=== PATIENT | female | born 1945 | race Caucasian/White ===

== ENCOUNTER → 2018-02-13 | Outpatient (CLI) | payer MEDICARE, OTHER ==
--- NOTE | 2018-02-14 23:53 | US ---
EXAMINATION TYPE: US thyroid st tissue head/neck DATE OF EXAM: 02/13/2018 COMPARISON: NONE CLINICAL HISTORY: E04.9 Enlarged thyroid. Neck swelling GLAND SIZE: Right Lobe: 5.7 x 1.9 x 2.5 cm Overall Parenchyma: heterogenous Left Lobe: 6.7 x 3.7 x 4.1 cm Overall Parenchyma: heterogeneous Isthmus Thickness: 0.8 cm NODULES ISTHMUS: # of nodules measured in the isthmus: 0 Bilateral neck scanned, no evidence of lymphadenopathy. Markedly heterogeneous enlarged thyroid without definitive suspicious focal nodule. IMPRESSION: As above
== END ==
LOC: RADUSWWP 15:52
PROVIDERS: ATTEND Family Medicine
DX: E04.9 Nontoxic goiter, unspecified (principal); E04.1 Nontoxic single thyroid nodule
CPT/HCPCS: 76536

== ENCOUNTER → 2019-05-26 | Outpatient (CLI) | payer MEDICARE, OTHER ==
--- NOTE | 2019-05-27 09:08 | NM ---
EXAMINATION TYPE: NM bone scan whole body DATE OF EXAM: 05/26/2019 COMPARISON: NONE HISTORY: Left hip pain for 3 years after left hip replacement. History of osteoarthritis. Left knee r eplacement approximately 11 years ago Delayed whole-body scanning was performed following the injection of 24.7 mCi Tc 99m MDP. Images acq uired 3 hours post injection. FINDINGS: Photopenic defect is seen of the left knee and left femur from arthroplasties. There is abnormal curv ilinear uptake of the acetabulum as well as of the left superior pubic ramus and left pubic bone. Foc al uptake is also seen of the right tibial tuberosity. Physiologic excretion within the kidneys and c umulation the urinary bladder as well as avid uptake in the nasopharynx are noted. Degenerative uptak e is symmetric of the acromioclavicular joints, glenohumeral joints, sternoclavicular joints, elbows, wrists, sacroiliac joints and ankles. Symmetric uptake of the spine is also likely degenerative. IMPRESSION: 1. Focal curvilinear uptake along the left acetabulum. In a total hip prosthesis there is concern for acetabular component loosening, aseptic or septic. 2. Abnormal uptake along the left superior pubic ramus and pubic bone. Correlate with radiographs to assess for fracture or osseous lesion. 3. Tibial tuberosity focal uptake on the right. Correlation with radiographs is also recommended. 4. Mild degenerative changes of the axial and appendicular skeleton.
== END | disposition home or self-care (01) ==
LOC: RADBDWWP 12:35
PROVIDERS: ATTEND Family Medicine
DX: M19.90 Unspecified osteoarthritis, unspecified site (principal); R94.8 Abnormal results of function studies of other organs and systems; Z88.0 Allergy status to penicillin; Z88.2 Allergy status to sulfonamides; Z88.5 Allergy status to narcotic agent; Z88.6 Allergy status to analgesic agent
CPT/HCPCS: 78306; A9503

== ENCOUNTER → 2019-10-18 | Outpatient (CLI) | payer MEDICARE, OTHER | END | disposition home or self-care (01) | LOC: LABPAT 11:01 | PROVIDERS: ATTEND Orthopaedic Surgery | DX: Z01.812 Encounter for preprocedural laboratory examination (principal) | CPT/HCPCS: 87070 ==

== ENCOUNTER → 2019-11-05 | Outpatient (CLI) | payer MEDICARE, OTHER ==
[2019-11-05 12:57] LABS: HCT 35.2 % (34.0-46.0); HGB 11.6 gm/dL (11.4-16.0); MCH 30.9 pg (25.0-35.0); MCHC 33.1 g/dL (31.0-37.0); MCV 93.3 fL (80.0-100.0); Mean Platelet Volume 8.3; Platelet Count 111 k/uL (150-450); RBC 3.77 m/uL (3.80-5.40); RDW 12.8 % (11.5-15.5); WBC 6.1 k/uL (3.8-10.6)
[2019-11-05 13:04] LABS: Albumin 3.6 g/dL (3.5-5.0); Calcium 9.1 mg/dL (8.4-10.2); Potassium 4.2 mmol/L (3.5-5.1); Total Bilirubin 0.5 mg/dL (0.2-1.3); Total Protein 6.3 g/dL (6.3-8.2)
[2019-11-05 13:15] LABS: INR 0.9 (<1.2); Partial Thromboplastin Time 22.2 sec (22.0-30.0); Prothrombin Time 9.9 sec (9.0-12.0)
[2019-11-05 13:26] LABS: Appearance,Urine Clear (Clear); Bacteria,Urine Rare /hpf; Bilirubin,Urine Negative (Negative); Blood,Urine Negative (Negative); Color,Urine Light Yellow; Glucose,Urine (UA) Negative (Negative); Ketones,Urine Negative (Negative); Leukocyte Esterase,Urine Small (Negative); Mucus,Urine Rare /hpf; Nitrite,Urine Negative (Negative); PH, Urine 6.5 (5.0-8.0); Protein,Urine Negative (Negative); Specific Gravity,Urine 1.007 (1.001-1.035); Squamous Epithelial Cell,Urine <1 /hpf (0-4); Urobilinogen,Urine <2.0 mg/dL (<2.0); WBC,Urine 1 /hpf (0-5)
== END | disposition home or self-care (01) ==
LOC: LABPAT 11:47
PROVIDERS: ATTEND Orthopaedic Surgery
DX: Z01.810 Encounter for preprocedural cardiovascular examination (principal); Z01.812 Encounter for preprocedural laboratory examination
CPT/HCPCS: 80053; 81001; 85027; 85610; 85730; 86850; 86900; 86901; 87070; 93005

== ENCOUNTER 2019-11-15 07:00 | Inpatient (IN) | payer MEDICARE, OTHER ==
[2019-10-29 13:37] VITALS: BMI 28.3
[2019-11-16] MEDS ORDERED: TRANEXAMIC ACID 1,000 MG in SODIUM CHLORIDE 0.9% 100 ML IVPB ONE ×4 (05:00)
[2019-11-16] MEDS ORDERED: ACETAMINOPHEN TAB 500 MG TAB PO ONE (05:00)
[2019-11-16] MEDS ORDERED: MELOXICAM 7.5 MG TAB PO ONE (05:00)
[2019-11-16] MEDS ORDERED: GABAPENTIN 300 MG CAP PO ONE (05:00)
[2019-11-16] MEDS ORDERED: LIDOCAINE 1% 20 ML VIAL (10MG/ML) FOR IV START INTRADERMA PRN (05:36)
[2019-11-16] MEDS ORDERED: DEXAMETHASONE SOD PHOSPHATE 10 MG/ML 1 ML VIAL IV ONE (05:36)
[2019-11-16] MEDS ORDERED: SCOPOLAMINE 1.5MG/72HR PATCH TRANSDERM ONE (05:36)
[2019-11-16] MEDS ORDERED: HYDROmorphone 0.5 MG/0.5 ML SYRINGE IVP PRN ×4 (05:36→11:02)
[2019-11-16] MEDS ORDERED: MIDAZOLAM 2 MG/2 ML VIAL IV PRN (05:36)
[2019-11-16] MEDS ORDERED: ONDANSETRON 4 MG/2 ML VIAL IVP ONE (05:36)
[2019-11-16] MEDS ORDERED: VANCOMYCIN 1,000 MG in SODIUM CHLORIDE 0.9% 250 ML IVPB ONE ×2 (06:00→23:00)
[2019-11-16] MEDS: LACTATED RINGERS 1,000 ML IV SCH (10:36)
[2019-11-16] MEDS ORDERED: DIAZEPAM 5 MG TAB PO PRN (11:02)
[2019-11-16] MEDS ORDERED: hydrOXYzine PAMOATE 25 MG CAP PO PRN (11:02)
[2019-11-16] MEDS ORDERED: NALOXONE 0.4 MG/ML 1 ML VIAL IV PRN (11:02)
[2019-11-16] MEDS ORDERED: MAGNESIUM HYDROXIDE 2,400 MG/10 ML CUP PO PRN (11:02)
[2019-11-16] MEDS ORDERED: ePHEDrine SULFATE/0.9% NACL/PF 50 MG/5 ML SYRINGE IV ONE (11:31)
[2019-11-16] MEDS ORDERED: MIDAZOLAM 2 MG/2 ML VIAL ONE (11:31)
[2019-11-16] MEDS ORDERED: SODIUM CHLORIDE 0.9% 100 ML BAG ONE (11:31)
[2019-11-16] MEDS ORDERED: SODIUM CHLORIDE 0.9% IRRIG 1,000 ML BTL IRRIGATION ONE (11:31)
[2019-11-16] MEDS ORDERED: PROPOFOL 10 MG/ML 20 ML VIAL IV ONE (11:31)
[2019-11-16] MEDS ORDERED: fentaNYL (PF) 50 MCG/ML 2 ML AMP ONE (11:31)
[2019-11-16] MEDS ORDERED: diphenhydrAMINE 50 MG/ML 1 ML VIAL ONE (11:31)
[2019-11-16] MEDS ORDERED: HEPARIN SODIUM,PORCINE 10,000 UNIT/ML 1 ML VIAL ONE (11:31)
[2019-11-16] MEDS ORDERED: HYDROmorphone (PF) 1 MG/ML ONE (11:31)
[2019-11-16] MEDS ORDERED: TRANEXAMIC ACID 1,000 MG/10 ML VIAL ONE (11:31)
[2019-11-16] MEDS: ROPIVACAINE 246.25 MG, EPINEPHrine 0.5 MG, KETOROLAC 30 MG, cloNIDine HCL/PF 80 MCG, WA... MISCELLANE ONE ×10 (12:04→13:57)
[2019-11-16] MEDS ORDERED: LACTATED RINGERS 1,000 ML IV ONE (14:15)
--- NOTE | 2019-11-16 14:23 | P.OP ---
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 The articulation is Oxinium on polyethylene. Anesthesia: spinal Surgeon: John Sanchez Paper Winder #1: Sheri Charles Estimated Blood Loss (ml): 750 (316 mL returned with Cell Saver) Pathology: other (Cultures 2) Condition: stable Disposition: PACU Indications for Procedure: This is a 74-year-old female that presented to [facility] with pain in her left hip. She has had a prior ORIF of the left hip which was converted to a total hip arthroplasty in the past. She has significant pain in the groin of her left hip and x-rays demonstrated a grossly loose acetabular component. Femoral component was also malpositioned secondary to the prior fracture. After discussing the surgical nonsurgical treatment options with her at length I've recommended a revision of total hip arthroplasty and informed consent was obtained. Operative Findings: The operative findings are consistent with a loose acetabular component as well as malposition of the femoral component. Description of Procedure: Patient was seen and evaluated in the preoperative area, consent was reviewed, and the surgical site was marked with a skin marker. Patient was then brought to the operating room and given prophylactic antibiotics intravenously. 1 g of Tranexamic acid was also given. A spinal anesthetic was administered by the anesthesia department. The patient was then placed on the operative table and placed in the lateral decubitus position with the bony prominences well-padded. The hip area was then prepped and draped in usual sterile fashion. A universal timeout was then performed, which confirmed the patient's name, surgical site, ALLERGIES, and procedure being performed. Next the incision site was located in the lateral aspect of the hip, centered at the tip of the greater trochanter.. The skin and subcutaneous tissues were sharply incised. The prior incision was utilized with the scar being excised. Incision was carefully dissected down to the fascia. This fascia was then incised in line with the incision. Next, a Charnley retractor was then placed in the abductors were identified. The anterior one third of the abductors was released off the trocha nter and one large sleeve. The anterior hip capsule was then exposed. The capsule was then opened. There was a moderate amount of clear fluid which was cultured 2. The proximal femur was then visualized. The hip was then gently dislocated. The femoral head was then removed from the implant without difficulty. The femoral implant appeared well fixed, although malpositioned. A flexible oste otome was used to disrupt the implant bone interface. The implant was extensively ingrown on the medial aspect of the implant and was difficult to extract the femoral component. A trochanteric osteotomy was performed but due to the malposition of the trochanter, this was unsuccessful. Finally the implant was then removed with extensive fracturing of the proximal femur. Next attention was directed to the acetabulum. The acetabulum was exposed and the acetabular component was found to be grossly loose. The polyethylene liner was removed from the acetabulum followed by removal of the one acetabular screw. The acetabular component was then removed without evidence of any bone ingrowth. Sequential reaming of the acetabulum was performed to 54 mm. A 54 mm trial was then placed which was found to have a secure fit. The trial was then removed. Reamed bone from the acetabulum was then placed as additional bone graft. A multi hole acetabular component was impacted appropriate anteversion and inclination. 4 screws then placed in the acetabulum were used to augment fixation. Acetabular liner was then placed with a 20 elevation at the anterior superior quadrant. Attention was then directed to the femur. The proximal femur was reexposed. Retractors were then placed. Sequential reaming of the femoral canal was then performed until a secure fit was achieved.. A trial was then placed with appropriate head and neck, and the hip was gently reduced. The leg lengths were checked and found to be equal. Hip was then taken through full range of motion, was stable throughout. Next, the hip was gently dislocated, and the trials were removed. Final implants were then impacted and the hip was again reduced. The leg lengths were again examined and found to be equal. The hip was also taken through range of motion, and found to be stable. Next, 2 cables were placed proximally in order to help secure the greater lesser trochanters. There was a significant area of bone loss, but the implant bypass this for fixation. The hip was then copiously irrigated with antibiotic solution with pulsatile lavage. The hip was then irrigated with Irrisept solution. The soft tissues were then injected with ropivacaine solution. A second dose of 1 g of Tranexamic acid was given. The abductors were then repaired with #5 Ethibond suture with drill holes to the bone. The fascia was closed with #2 strata fix suture. The subcutaneous tissue was closed with 3-0 Vicryl. The subcuticular tissue was closed with 3-0 strata fix suture. The skin was then closed with skin glue. A sterile dressing was then applied. The patient was then transferred to the recovery room in stable condition. The Asst.MAGGIE Jaimes was required due to the complexity of surgery, and the need for skilled nursing surgical services director for positioning, draping, exposure, retraction, and closure of the wound.and closure of the wound.
--- NOTE | 2019-11-16 14:54 | XR ---
EXAMINATION TYPE: XR Hip Limited LT DATE OF EXAM: 11/16/2019 CLINICAL HISTORY: Left hip pain and osteoarthritis. TECHNIQUE: Single AP portable view of left hip is obtained immediately postoperatively. COMPARISON: Bone scan May 26, 2019. FINDINGS: Metallic hardware from longstem left hip arthroplasty revision is seen and appears satisfac tory in alignment and position. There is evidence of recent surgery with subcutaneous gas noted late rally. IMPRESSION: Metallic hardware from longstem left hip arthroplasty revision is satisfactory in positio n.
[2019-11-16] MEDS: SODIUM CHLORIDE 0.9% 1,000 ML IV SCH ×2 (16:14→19:09)
[2019-11-16] MEDS: ONDANSETRON 4 MG/2 ML VIAL IVP PRN (18:44)
[2019-11-16] MEDS: traZODone HCL 100 MG TAB PO SCH (21:15)
[2019-11-16] MEDS: SENNOSIDES-DOCUSATE SODIUM 1 EACH TAB PO SCH (21:15)
[2019-11-16] MEDS: PANTOPRAZOLE 40 MG TABLET PO SCH (21:15)
[2019-11-16] MEDS: HYDROcodone/APAP 5-325MG 1 EACH TAB PO PRN (23:02)
[2019-11-17] MEDS: LACTATED RINGERS 1,000 ML IV SCH (01:50)
--- NOTE | 2019-11-17 05:30 | CONS ---
CONSULTATION CHIEF COMPLAINT: Left hip pain. HISTORY OF PRESENT ILLNESS: This lady was admitted for an elective revision of her left hip. She has had no recent complications including urinary tract infection, fever, chills, shortness of breath, chest pain, etc. She has a history of well-controlled essential hypertension and hyperlipidemia. She is an anxious, but very pleasant, cooperative lady. REVIEW OF SYSTEMS: She denies any focal neurologic problems, difficulty with vision or hearing, chest pain, shortness of breath, cough, hemoptysis, sputum production, abdominal pain, nausea, vomiting, hematemesis, melena, hematochezia, jaundice, hepatitis, cirrhosis, hematuria, frequency, urgency, renal failure, dysuria, diabetes, etc. Past medical history, family history and personal and social histories are otherwise unremarkable and noncontributory and can be found in inpatient summary. ALLERGIES: She is allergic to SULFA, VICODIN, ASPIRIN and PENICILLIN. MEDICATIONS: Medications have included simvastatin 40 at bedtime, chlorthalidone 25 once a day, Zyrtec 10 mg once a day, Prozac 10 mg once a day, levothyroxine 0.025 mg once a day, benazepril 10 mg once a day, KCl 20 mEq twice a day, omeprazole 20 mg twice a day, vitamin D 50,000 units every 2 weeks and ibuprofen 600 q.i.d. She does not smoke or drink. PHYSICAL EXAMINATION: Blood pressure is 122/64, pulse 78, respirations 16. She is afebrile. In general, she appeared to be well developed, well nourished, in no acute distress. Skin color is normal. Skin is warm, dry. Lymph nodes are not enlarged. Head, ears, eyes, nose, mouth, and throat were normal and neck veins are not distended. Thyroid is not enlarged. Chest is clear. Cardiac exam is normal. Abdomen is soft, nontender. Extremities are normal. Neurologically, she is intact. She is admitted to the hospital with diagnoses: 1. Osteoarthritis of the left hip. 2. Hypertension. 3. Hyperlipidemia. 4. Depression. RECOMMENDATIONS: None. MMODL / IJN: [id number] /
[2019-11-17] MEDS: HYDROcodone/APAP 5-325MG 1 EACH TAB PO PRN ×3 (05:38→23:23)
[2019-11-17] MEDS: LEVOTHYROXINE 25 MCG TAB PO SCH (05:38)
[2019-11-17] MEDS ORDERED: PANTOPRAZOLE 40 MG TABLET PO SCH (07:30)
[2019-11-17] MEDS: LORATADINE 10 MG TAB PO SCH (07:31)
[2019-11-17] MEDS: LISINOPRIL 10 MG TAB PO SCH (07:31)
[2019-11-17] MEDS: COLCHICINE 0.6 MG EACH PO SCH (07:31)
[2019-11-17] MEDS: RIVAROXABAN 10 MG TAB PO SCH (07:31)
[2019-11-17] MEDS: PANTOPRAZOLE 40 MG TABLET PO SCH ×2 (07:31→16:41)
[2019-11-17] MEDS: CHLORTHALIDONE 25 MG TAB PO SCH (07:31)
[2019-11-17] MEDS: POTASSIUM CHLORIDE ER 10 MEQ TAB.ER.PRT PO SCH (07:31)
[2019-11-17] MEDS: FLUoxetine HCL 10 MG CAP PO SCH (07:31)
[2019-11-17 07:38] LABS: Basophils % (A) 0 %; Eosinophils # (A) 0.1 k/uL (0-0.7); Eosinophils % (A) 1 %; Lymphocytes # (A) 1.4 k/uL (1.0-4.8); Lymphocytes % (A) 14 %; MCH 31.3 pg (25.0-35.0); MCV 94.8 fL (80.0-100.0); Mean Platelet Volume 8.8; Monocytes # (A) 0.4 k/uL (0-1.0); Monocytes % (A) 5 %; Neutrophils # (A) 7.6 k/uL (1.3-7.7); Neutrophils % (A) 80 %; Platelet Count 101 k/uL (150-450); RBC 2.84 m/uL (3.80-5.40); WBC 9.5 k/uL (3.8-10.6)
[2019-11-17 07:44] LABS: HGB 8.9 gm/dL (11.4-16.0)
--- NOTE | 2019-11-17 09:40 | P.PN ---
Subjective Progress Note Date: 11/17/19 Principal diagnosis: Component failure left total hip. This is a 74-year-old female who is status post revision total left hip arthroplasty. She has complaint of some abdominal pain this morning. She reports no vomiting or nausea. She states that she has not passed gas or had a bowel movement. Her vital signs are stable. Hemoglobin is 8.9. Objective - Vital Signs Vital signs: Vital Signs Temp 97.6 F 11/17/19 07:00 Pulse 85 11/17/19 07:00 Resp 16 11/17/19 07:00 BP 91/55 11/17/19 07:00 Pulse Ox 96 11/17/19 07:00 Intake & Output 11/16/19 11/17/19 11/17/19 18:59 06:59 18:59 Intake Total 1850 1120 Output Total 750 250 Balance 1100 870 Weight 65 kg Intake: IV 1850 Intake, IV Titration 780 Amount Sodium Chloride 0.9% 1, 780 000 ml @ 65 mls/hr IV . [id number] [facility] Rx#:[id number] Oral 340 Output: Urine 250 Estimated Blood Loss 750 Other: # Voids 1 - Exam This is a pleasant 74-year-old female in no acute distress. She is alert and oriented 3. Exam of the abdomen reveals that she is soft and nontender. No obvious distention. She has mild epigastric tenderness. Exam the lower extremities reveals that her dressing is clean, dry and intact. She has full foot and ankle motion bilaterally. Neurovascular status to the lower extremities is intact. - Labs CBC & Chem 7: 11/17/19 06:37 Labs: Abnormal Lab Results - Last 24 Hours (Table) 11/17/19 Range/Units 06:37 RBC 2.84 L (3.80-5.40) m/uL Hgb 8.9 L D (11.4-16.0) gm/dL Hct 27.0 L (34.0-46.0) % Plt Count 101 L (150-450) k/uL Microbiology - Last 24 Hours (Table) 11/16/19 14:00 Gram Stain - Preliminary Hip - Left Wound Culture - Preliminary 11/16/19 14:00 Gram Stain - Preliminary Hip - Left Wound Culture - Preliminary 11/16/19 14:00 Anaerobic Culture - Preliminary Hip - Left 11/16/19 14:00 Anaerobic Culture - Preliminary Hip - Left Assessment and Plan (1) Failure of left total hip arthroplasty Current Visit: Yes Status: Acute Code(s): T84.011A - BROKEN INTERNAL LEFT HIP PROSTHESIS, INITIAL ENCOUNTER SNOMED Code(s): 133786687 (2) History of revision of total replacement of left hip joint Current Visit: Yes Status: Acute Code(s): Z96.642 - PRESENCE OF LEFT ARTIFICIAL HIP JOINT SNOMED Code(s): 241616457791075 Plan: The clinical findings are discussed with the patient. I will discuss her abdominal pain with nursing staff to follow-up. The patient is pending transfer to inpatient rehab. She may be discharged to inpatient rehab when cleared medically and authorization approved. She is to continue on her Xarelto.
--- NOTE | 2019-11-17 14:52 | CDI ---
Acute Blood loss anemia secondary to surgery Documentation Clarification Form Date: 11/17/2019 02:10:21 PM From: Marina Velasquez RN, CCDS Admit Date: 11/16/2019 09:56:00 AM Patient Name: Lc Carranza Visit Number: [id number] Discharge Date: ATTENTION: The Clinical Documentation Specialists (CDI) and [facility] Coding Staff appreciate your assistance in clarifying documentation. Please respond to the clarification below the line at the bottom and electronically sign. The CDI & [facility] Coding staff will review the response and follow-up if needed. Please note: Queries are made part of the Legal Health Record. If you have any questions, please contact the author of this message via ITS. Dr. John Sanchez On 11/17/19 you have documented a hemoglobin of 8.9. The operative note has an estimated blood loss of 750 ml. (316 ml returned with Cell Saver). This lacks specificity to accurately reflect your patients severity of condition and clarification is needed. History/Risk Factors: Failed left total hip arthroplasty Clinical indicators: 74 -year-old female who complained of significant pain present for an elective repair of her failed left total hip arthroplasty. In the Operative note an estimated blood of 750 mls, with 316 mls returned. with Cell Saver. This is still and estimated blood volume deficit of 434 mls. 11/05/19 PAT Labs shows Hemoglobin 11.6, Hematocrit 35.2 11/17/19 Hemoglobin: 8.9 11/17/19 Hematocrit: 27.0 Treatment: Monitoring CBD Daily 0.9% saline @ 65 mls/hr In order to capture the severity of condition, please clarify the abnormal lab value and etiology if known: Acute blood loss anemia, Expected (specify etiology) Other, please specify Unable to determine (Last Revision: July 2017) MTDD
[2019-11-17] MEDS: SODIUM CHLORIDE 0.9% 1,000 ML IV SCH (20:40)
[2019-11-17] MEDS: SENNOSIDES-DOCUSATE SODIUM 1 EACH TAB PO SCH (20:40)
[2019-11-17] MEDS: traZODone HCL 100 MG TAB PO SCH (20:40)
[2019-11-17] MEDS: ONDANSETRON 4 MG/2 ML VIAL IVP PRN (20:44)
--- NOTE | 2019-11-17 23:56 | PN ---
PROGRESS NOTE CHIEF COMPLAINT: Status post left hip revision. HISTORY OF PRESENT ILLNESS: This lady is doing fairly well, but she is complaining of some upper abdominal discomfort. She has had no fever or chills, shortness of breath, nausea, vomiting, etc. PHYSICAL EXAMINATION: Vital signs are normal. Chest is clear. Cardiac exam is normal. Abdomen is soft and nontender without any visceromegaly or masses. Bowel sounds are present. IMPRESSION: 1. Status post revision of left hip. 2. Hypertension. 3. Mild upper abdominal pain, etiology unknown. PLAN: Continue to follow and she is doing well. If she continues to have abdominal complaints, this may be investigated. MMODL / IJN: [id number] /
[2019-11-18] MEDS: LACTATED RINGERS 1,000 ML IV SCH (00:25)
[2019-11-18] MEDS: LEVOTHYROXINE 25 MCG TAB PO SCH (05:43)
[2019-11-18] MEDS: CHLORTHALIDONE 25 MG TAB PO SCH (07:24)
[2019-11-18] MEDS: LISINOPRIL 10 MG TAB PO SCH (07:25)
[2019-11-18] MEDS: RIVAROXABAN 10 MG TAB PO SCH (07:30)
[2019-11-18] MEDS: PANTOPRAZOLE 40 MG TABLET PO SCH ×2 (07:30→17:30)
[2019-11-18] MEDS: COLCHICINE 0.6 MG EACH PO SCH (07:30)
[2019-11-18] MEDS: FLUoxetine HCL 10 MG CAP PO SCH (07:30)
[2019-11-18] MEDS: LORATADINE 10 MG TAB PO SCH (07:30)
[2019-11-18] MEDS: POTASSIUM CHLORIDE ER 10 MEQ TAB.ER.PRT PO SCH (07:30)
--- NOTE | 2019-11-18 09:47 | P.PN ---
Subjective Progress Note Date: 11/18/19 Principal diagnosis: Component failure left total hip. This is a 74-year-old female who is status post revision total left hip arthroplasty. She is up with therapy. She has no new complaints or concerns today. Her vital signs are stable. Objective - Vital Signs Vital signs: Vital Signs Temp 98.5 F 11/18/19 06:57 Pulse 96 11/18/19 06:57 Resp 17 11/18/19 06:57 BP 94/57 11/18/19 06:57 Pulse Ox 92 L 11/18/19 06:57 Intake & Output 11/17/19 11/18/19 11/18/19 18:59 06:59 18:59 Intake Total 240 655 120 Output Total 300 Balance 240 355 120 Intake: Intake, IV Titration 655 Amount Sodium Chloride 0.9% 1, 655 000 ml @ 65 mls/hr IV . [id number] [facility] Rx#:[id number] Oral 240 120 Output: Urine 300 Other: # Voids 1 1 - Exam This is a pleasant 74-year-old female in no acute distress. She is alert and oriented 3. She is up ambulating with physical therapy with her walker. Exam the lower extremities reveals that her dressing is clean, dry and intact. She has full foot and ankle motion bilaterally. Neurovascular status to the lower extremities is intact. - Labs CBC & Chem 7: 11/17/19 06:37 Labs: Microbiology - Last 24 Hours (Table) 11/16/19 14:00 Gram Stain - Preliminary Hip - Left Wound Culture - Preliminary 11/16/19 14:00 Gram Stain - Preliminary Hip - Left Wound Culture - Preliminary Assessment and Plan (1) Failure of left total hip arthroplasty Current Visit: Yes Status: Acute Code(s): T84.011A - BROKEN INTERNAL LEFT HIP PROSTHESIS, INITIAL ENCOUNTER SNOMED Code(s): 739909908 (2) History of revision of total replacement of left hip joint Current Visit: Yes Status: Acute Code(s): Z96.642 - PRESENCE OF LEFT ARTIFICIAL HIP JOINT SNOMED Code(s): 271333952737650 Plan: The clinical findings are discussed with the patient. The patient is pending transfer to inpatient rehab. She may be discharged to inpatient rehab when cleared medically and authorization approved. She is to continue on her Xarelto.
[2019-11-18] MEDS: HYDROcodone/APAP 5-325MG 1 EACH TAB PO PRN ×2 (10:01→21:36)
[2019-11-18] MEDS: SODIUM CHLORIDE 0.9% 1,000 ML IV SCH (10:53)
[2019-11-18 11:31] LABS: HCT 23.8 % (34.0-46.0); MCH 31.8 pg (25.0-35.0); MCHC 33.5 g/dL (31.0-37.0); MCV 95.1 fL (80.0-100.0); Mean Platelet Volume 9.2; RDW 13.2 % (11.5-15.5); WBC 7.3 k/uL (3.8-10.6)
[2019-11-18 12:06] LABS: Platelet Count 89 k/uL (150-450)
[2019-11-18] MEDS: traZODone HCL 100 MG TAB PO SCH (21:35)
[2019-11-18] MEDS: SENNOSIDES-DOCUSATE SODIUM 1 EACH TAB PO SCH (21:35)
--- NOTE | 2019-11-18 22:54 | PN ---
PROGRESS NOTE CHIEF COMPLAINT: Followup on revision of left hip. HISTORY OF PRESENT ILLNESS: This lady is doing well, but she continues to complain of epigastric pain. She always has something to complain about. Vital signs are normal. She has had no nausea, vomiting, diarrhea, etc. PHYSICAL EXAMINATION: Color is good. Chest is clear. Cardiac exam is normal. Abdomen is soft, nontender. There are no masses. IMPRESSION: Status post revision of left hip. PLAN: No change in her program. She is on Protonix, and I would have nothing further to add. She will probably be going home soon. MMODL / IJN: [id number] /
[2019-11-19] MEDS: SODIUM CHLORIDE 0.9% 1,000 ML IV SCH ×2 (02:12→17:14)
[2019-11-19] MEDS: LACTATED RINGERS 1,000 ML IV SCH (02:15)
[2019-11-19] MEDS: LEVOTHYROXINE 25 MCG TAB PO SCH (05:44)
[2019-11-19] MEDS: LISINOPRIL 10 MG TAB PO SCH (07:49)
[2019-11-19] MEDS: CHLORTHALIDONE 25 MG TAB PO SCH (07:49)
[2019-11-19 07:50] LABS: Basophils % (A) 0 %; Eosinophils # (A) 0.1 k/uL (0-0.7); Eosinophils % (A) 2 %; HCT 21.7 % (34.0-46.0); HGB 7.1 gm/dL (11.4-16.0); Lymphocytes # (A) 1.6 k/uL (1.0-4.8); Lymphocytes % (A) 28 %; MCHC 32.6 g/dL (31.0-37.0); Mean Platelet Volume 8.7; Monocytes # (A) 0.4 k/uL (0-1.0); Monocytes % (A) 7 %; Neutrophils # (A) 3.4 k/uL (1.3-7.7); Neutrophils % (A) 61 %; RBC 2.29 m/uL (3.80-5.40); RDW 13.1 % (11.5-15.5); WBC 5.6 k/uL (3.8-10.6)
[2019-11-19 07:59] LABS: Platelet Count 85 k/uL (150-450)
[2019-11-19] MEDS: RIVAROXABAN 10 MG TAB PO SCH (08:08)
[2019-11-19] MEDS: FLUoxetine HCL 10 MG CAP PO SCH (08:08)
[2019-11-19] MEDS: PANTOPRAZOLE 40 MG TABLET PO SCH ×2 (08:09→17:14)
[2019-11-19] MEDS: LORATADINE 10 MG TAB PO SCH (08:09)
[2019-11-19] MEDS: POTASSIUM CHLORIDE ER 10 MEQ TAB.ER.PRT PO SCH (08:09)
[2019-11-19] MEDS: COLCHICINE 0.6 MG EACH PO SCH (08:09)
[2019-11-19] MEDS: HYDROcodone/APAP 5-325MG 1 EACH TAB PO PRN ×3 (08:15→20:12)
--- NOTE | 2019-11-19 16:14 | P.PN ---
Subjective Progress Note Date: 11/19/19 This is a 74- year old female who is status-post a revision left total hip arthroplasty on 11/16/[address] Sanchez. Patient was examined bedside today. She states her pain is currently well controlled of the left hip. She overall feels well this morning. She denies lightheadedness or dizziness. She has not had a bowel movement post operatively, although she is passing gas. She has no new complaints. Vital signs stable. Objective - Vital Signs Vital signs: Vital Signs Temp 98.4 F 11/19/19 14:33 Pulse 89 11/19/19 14:33 Resp 18 11/19/19 14:33 BP 96/59 11/19/19 14:33 Pulse Ox 100 11/19/19 14:33 Intake & Output 11/18/19 11/19/19 11/19/19 18:59 06:59 18:59 Intake Total 600 400 400 Balance 600 400 400 Intake: Oral 600 400 400 Other: Voiding Method Bedside Commode Bedside Commode Diaper # Voids 2 2 3 - Exam On examination, the patient is alert and orientated x3. On inspection of the left hip, the dressing is clean, dry, and intact. Ecchymosis of the left hip. She has full foot and ankle motion without difficulty or pain. Neurovascular status to the lower extremities is intact. Vital signs stable. - Labs CBC & Chem 7: 11/19/19 07:10 Labs: Abnormal Lab Results - Last 24 Hours (Table) 11/19/19 Range/Units 07:10 RBC 2.29 L (3.80-5.40) m/uL Hgb 7.1 L (11.4-16.0) gm/dL Hct 21.7 L (34.0-46.0) % Plt Count 85 L (150-450) k/uL Microbiology - Last 24 Hours (Table) 11/16/19 14:00 Gram Stain - Final Hip - Left Wound Culture - Final 11/16/19 14:00 Gram Stain - Final Hip - Left Wound Culture - Final Assessment and Plan Assessment: Status-post left revision total hip arthroplasty on 11/16/19. Post-operative day #3. Plan: - 50% weightbearing as tolerated on the operative leg with a walker. Up with assistance. - Leave dressing in place. May shower with dressing on. - Continue on Xarelto for DVT prophylaxis. - Continue posterior hip precautions. Continue use of abductor pillow while sleeping and while in bed. - Patient's hemoglobin down to 7.1 today, per internal medicine, patient needs a re-check CBC in the AM. We will continue to monitor. - Anticipate discharge tomorrow to rehab, pending medical clearance.
[2019-11-19] MEDS: traZODone HCL 100 MG TAB PO SCH (20:06)
[2019-11-19] MEDS: SENNOSIDES-DOCUSATE SODIUM 1 EACH TAB PO SCH (20:06)
[2019-11-20] MEDS: LACTATED RINGERS 1,000 ML IV SCH (05:25)
[2019-11-20] MEDS: LEVOTHYROXINE 25 MCG TAB PO SCH (06:19)
--- NOTE | 2019-11-20 07:08 | PN ---
PROGRESS NOTE CHIEF COMPLAINT: Status post revision of the left hip and anemia. HISTORY OF PRESENT ILLNESS: This lady has been released by Orthopedics, but her hemoglobin is down to just over 7. There are no signs of bleeding. PHYSICAL EXAMINATION: She is slightly pale. Chest is clear and the cardiac exam is normal and the abdomen is soft, nontender. IMPRESSION: 1. Status post left hip revision. 2. Hypertension. 3. Anemia. 4. Follow hemoglobin and obtain stool for occult blood. MMODL / IJN: [id number] /
[2019-11-20 07:34] LABS: Basophils % (A) 0 %; Eosinophils # (A) 0.1 k/uL (0-0.7); Eosinophils % (A) 2 %; HCT 21.7 % (34.0-46.0); Lymphocytes # (A) 1.9 k/uL (1.0-4.8); Lymphocytes % (A) 35 %; MCH 30.2 pg (25.0-35.0); MCHC 32.1 g/dL (31.0-37.0); MCV 94.1 fL (80.0-100.0); Mean Platelet Volume 8.3; Monocytes # (A) 0.4 k/uL (0-1.0); Monocytes % (A) 7 %; Neutrophils # (A) 2.9 k/uL (1.3-7.7); Neutrophils % (A) 54 %; RDW 13.2 % (11.5-15.5); WBC 5.4 k/uL (3.8-10.6)
[2019-11-20 07:36] LABS: Platelet Count 88 k/uL (150-450)
[2019-11-20] MEDS: HYDROcodone/APAP 5-325MG 1 EACH TAB PO PRN ×2 (08:52→18:16)
[2019-11-20] MEDS: COLCHICINE 0.6 MG EACH PO SCH (08:53)
[2019-11-20] MEDS: RIVAROXABAN 10 MG TAB PO SCH (08:53)
[2019-11-20] MEDS: PANTOPRAZOLE 40 MG TABLET PO SCH ×2 (08:53→18:17)
[2019-11-20] MEDS: LISINOPRIL 10 MG TAB PO SCH (08:53)
[2019-11-20] MEDS: CHLORTHALIDONE 25 MG TAB PO SCH (08:53)
[2019-11-20] MEDS: LORATADINE 10 MG TAB PO SCH (08:53)
[2019-11-20] MEDS: POTASSIUM CHLORIDE ER 10 MEQ TAB.ER.PRT PO SCH (08:53)
[2019-11-20] MEDS: FLUoxetine HCL 10 MG CAP PO SCH (08:53)
--- NOTE | 2019-11-20 10:03 | P.PN ---
Subjective Progress Note Date: 11/20/19 Principal diagnosis: Status post left revision total hip arthroplasty This is a 74 year-old female post left revision total hip arthroplasty. This is post-op day 4. The patient was evaluated at the bedside today. The patient denies shortness of breath, and chest pain this morning. She does state that she has some abdominal pain this morning. She has not passed gas this morning but did yesterday. She has not had a bowel movement since admission. The patient states she is unable to eat her breakfast due to the abdominal pain. Denies any nausea or vomiting. She states her pain is controlled at this time. The patient has been up with physical therapy and ambulates to the bathroom. Hgb is 7.0 today. Denies any lightheadedness or dizziness when up out of bed. Objective - Vital Signs Vital signs: Vital Signs Temp 98.2 F 11/20/19 07:00 Pulse 83 11/20/19 07:29 Resp 15 11/20/19 07:29 BP 109/61 11/20/19 07:00 Pulse Ox 98 11/20/19 07:00 Intake & Output 11/19/19 11/20/19 11/20/19 18:59 06:59 18:59 Intake Total 400 180 Output Total 300 Balance 400 180 -300 Intake: Oral 400 180 Output: Urine 300 Other: Voiding Method Bedside Commode Bedside Commode # Voids 3 1 1 - Exam The patient does not appear in acute distress. Alert and orientated x3. Abdomen is tender to palpation to all 4 quadrants. Abdomen is soft and nondistended. Dressing is clean dry and intact. Calf is soft and nontender. Good foot and ankle motion without difficulty. Sensation and circulatory status is intact. - Labs CBC & Chem 7: 11/20/19 06:50 Labs: Abnormal Lab Results - Last 24 Hours (Table) 11/20/19 Range/Units 06:50 RBC 2.30 L (3.80-5.40) m/uL Hgb 7.0 L (11.4-16.0) gm/dL Hct 21.7 L (34.0-46.0) % Plt Count 88 L (150-450) k/uL Assessment and Plan (1) Failure of left total hip arthroplasty Current Visit: Yes Status: Acute Code(s): T84.011A - BROKEN INTERNAL LEFT HIP PROSTHESIS, INITIAL ENCOUNTER SNOMED Code(s): 226608253 (2) History of revision of total replacement of left hip joint Current Visit: Yes Status: Acute Code(s): Z96.642 - PRESENCE OF LEFT ARTIFICIAL HIP JOINT SNOMED Code(s): 792730499637043 Plan: 1. Continue pain control 2. Anticoagulation with Xarelto 3. Continue physical therapy and ambulation 4. Recheck CBC in am 5. Dr. Serrato will consult general surgery/GI to further evaluate abdominal pain 6. Give milk of magnesia now for constipation 7. Anticipate discharge to rehab on Friday or Friday next week depending on course
--- NOTE | 2019-11-20 18:16 | PN ---
PROGRESS NOTE CHIEF COMPLAINT: Followup revision of left hip prosthesis. HISTORY OF PRESENT ILLNESS: This lady is still complaining of some epigastric pain and hemoglobin has gone down to 7. She has not had a bowel movement, so occult blood could not be tested for. PHYSICAL EXAMINATION: She is slightly pale. Chest is clear. The cardiac exam is normal. Abdomen is soft and she is a little bit tender over the epigastrium and the upper quadrant. IMPRESSION: 1. Epigastric pain. 2. Progressive anemia. 3. Status post revision of left hip. PLAN: 1. Await for occult blood. 2. Transfuse 1 unit of packed cells. 3. Hold discharge. MMODL / IJN: [id number] /
[2019-11-20] MEDS: SODIUM CHLORIDE 0.9% 1,000 ML IV SCH ×2 (20:31→23:49)
[2019-11-20] MEDS: traZODone HCL 100 MG TAB PO SCH (20:36)
[2019-11-20] MEDS: SENNOSIDES-DOCUSATE SODIUM 1 EACH TAB PO SCH (20:36)
[2019-11-21] MEDS: LACTATED RINGERS 1,000 ML IV SCH (03:41)
[2019-11-21] MEDS: LEVOTHYROXINE 25 MCG TAB PO SCH (06:22)
--- NOTE | 2019-11-21 06:59 | XR ---
EXAMINATION TYPE: XR abdomen 1V , ONE VIEW DATE OF EXAM ORDERED: 11/21/2019 HISTORY: Abdominal pain. COMPARISON: None. FINDINGS: There is a left hip prosthesis in place. There has been a previous cholecystectomy. The abdominal gas pattern is within normal limits. There is no evidence of obstruction or free air. N o unusual calcifications are seen. IMPRESSION: NO ACUTE INTRA-ABDOMINAL ABNORMALITY.
[2019-11-21] MEDS: HYDROcodone/APAP 5-325MG 1 EACH TAB PO PRN ×2 (07:44→17:14)
[2019-11-21] MEDS: CHLORTHALIDONE 25 MG TAB PO SCH (07:45)
[2019-11-21] MEDS: POTASSIUM CHLORIDE ER 10 MEQ TAB.ER.PRT PO SCH (07:45)
[2019-11-21] MEDS: RIVAROXABAN 10 MG TAB PO SCH (07:45)
[2019-11-21] MEDS: LISINOPRIL 10 MG TAB PO SCH (07:45)
[2019-11-21] MEDS: PANTOPRAZOLE 40 MG TABLET PO SCH ×2 (07:45→17:14)
[2019-11-21] MEDS: LORATADINE 10 MG TAB PO SCH (07:45)
[2019-11-21] MEDS: COLCHICINE 0.6 MG EACH PO SCH (07:45)
[2019-11-21] MEDS: FLUoxetine HCL 10 MG CAP PO SCH (07:45)
[2019-11-21 08:07] LABS: Basophils # (A) 0.1 k/uL (0-0.2); Basophils % (A) 1 %; Eosinophils # (A) 0.1 k/uL (0-0.7); Eosinophils % (A) 2 %; HCT 27.2 % (34.0-46.0); Lymphocytes # (A) 2.4 k/uL (1.0-4.8); Lymphocytes % (A) 39 %; MCH 29.7 pg (25.0-35.0); MCHC 32.5 g/dL (31.0-37.0); MCV 91.6 fL (80.0-100.0); Mean Platelet Volume 8.1; Monocytes # (A) 0.4 k/uL (0-1.0); Monocytes % (A) 7 %; Neutrophils # (A) 2.9 k/uL (1.3-7.7); Neutrophils % (A) 49 %; Platelet Count 131 k/uL (150-450); RBC 2.97 m/uL (3.80-5.40); RDW 14.4 % (11.5-15.5)
[2019-11-21 08:27] LABS: HGB 8.8 gm/dL (11.4-16.0)
--- NOTE | 2019-11-21 09:04 | P.PN ---
Subjective Progress Note Date: 11/21/19 Principal diagnosis: Status post left revision total hip arthroplasty This is a 74 year-old female post left revision total hip arthroplasty. This is post-op day 5. The patient was evaluated at the bedside today. The patient denies shortness of breath, and chest pain this morning. She does state that her abdominal pain has improved slightly. She had 2 bowel movements yesterday. An abdominal x-ray obtained this morning reveals normal gas pattern and no obstruction suspected. Denies any nausea or vomiting. She states her pain is controlled at this time. The patient has been up with physical therapy and ambulates to the bathroom. She had 1 unit of packed red blood cells yesterday. Hgb is 8.8 today. Denies any lightheadedness or dizziness when up out of bed. Objective - Vital Signs Vital signs: Vital Signs Temp 97.8 F 11/21/19 06:54 Pulse 80 11/21/19 06:54 Resp 16 11/21/19 06:54 BP 115/69 11/21/19 06:54 Pulse Ox 94 L 11/21/19 06:54 Intake & Output 11/20/19 11/21/19 11/21/19 18:59 06:59 18:59 Intake Total 910 Output Total 600 Balance 310 Intake: Oral 600 Blood Product 310 Rc Pheres Irrad As 3 310 Unit [id number] Output: Urine 600 Other: Voiding Method Bedside Commode # Voids 3 1 # Bowel Movements 1 - Exam The patient does not appear in acute distress. Alert and orientated x3. Abdomen is tender to palpation to all 4 quadrants. Abdomen is soft and nondistended. Dressing is clean dry and intact. Calf is soft and nontender. Good foot and ankle motion without difficulty. Sensation and circulatory status is intact. - Labs CBC & Chem 7: 11/21/19 06:40 Labs: Abnormal Lab Results - Last 24 Hours (Table) 11/20/19 11/21/19 Range/Units 11:00 06:40 RBC 2.97 L (3.80-5.40) m/uL Hgb 8.8 L D (11.4-16.0) gm/dL Hct 27.2 L (34.0-46.0) % Plt Count 131 L (150-450) k/uL Crossmatch See Detail Microbiology - Last 24 Hours (Table) 11/16/19 14:00 Anaerobic Culture - Final Hip - Left 11/16/19 14:00 Anaerobic Culture - Final Hip - Left Assessment and Plan (1) Failure of left total hip arthroplasty Current Visit: Yes Status: Acute Code(s): T84.011A - BROKEN INTERNAL LEFT HIP PROSTHESIS, INITIAL ENCOUNTER SNOMED Code(s): 896729436 (2) History of revision of total replacement of left hip joint Current Visit: Yes Status: Acute Code(s): Z96.642 - PRESENCE OF LEFT ARTIFICIAL HIP JOINT SNOMED Code(s): 532421114874611 Plan: 1. Continue pain control 2. Anticoagulation with Xarelto 3. Continue physical therapy and ambulation 4. Continue to follow closely with internal medicine with abdominal pain 5. Anticipate discharge to rehab on Friday most likely.
--- NOTE | 2019-11-21 18:00 | P.CONS ---
History of Present Illness - Reason for Consult Consult date: 11/21/19 Abdominal pain Requesting physician: Pradeep Serrato - Chief Complaint Hip pain - History of Present Illness 74-year-old female who presented with complaints of hip pain and is status post left revision total hip arthroplasty. The patient has a medical history signif icant for hyperlipidemia, hypertension, gastritis, and thyroid disorder. The patient complains of abdominal pain. She describes the pain as very umbilical and dull and aching in quality. The patient reports 2 bowel movements yesterday with some improvement in her pain. She denies any nausea or vomiting associated with her symptoms. She does report a known history of reflux for the past 4-5 years ago which she states medication to control with good relief of her symptoms. She also reports a remote history of anemia. She denies any signs or symptoms of GI bleeding. She believed she had an EGD and colonoscopy approximately 1 year ago and per the electronic medical record on 08/06/2016 she had EGD with findings of gastritis, esophagitis and a hiatal hernia. Patient's hemoglobin 8.9 on presentation subsequently remained in the 8 range until falling to 7 yesterday and is currently 8.8. Review of Systems REVIEW OF SYSTEMS: CONSTITUTIONAL: Denies any fevers, chills, weight change or fatigue. CARDIOVASCULAR: Denies any chest pain, palpitations high or low blood pressures RESPIRATORY: Denies any shortness of breath, hemoptysis or cough. GENITOURINARY: No dysuria or hematuria. MUSCULOSKELETAL: No weakness reported, but patient presented with left hip pain and is status post left total hip arthroplasty. SKIN: Denies any new rashes or lesions, jaundice or pallor. PSYCHIATRIC: Denies any depression or anxiety. NEUROLOGY: Denies headache, denies any new focal deficits. EARS/NOSE/THROAT: No recent hearing change, congestion, nasal discharge or sore throat. EYES: No pain in eyes, discharge or change in vision. GASTROINTESTINAL: As per HPI. Past Medical History Past Medical History: Hyperlipidemia, Hypertension, Memory Impairment, Thyroid Disorder Additional Past Medical History / Comment(s): SINUS. OSTEOPOROSIS History of Any Multi-Drug Resistant Organisms: None Reported Past Surgical History: Appendectomy, Cholecystectomy, Joint Replacement Additional Past Surgical History / Comment(s): TOTAL HIP AND KNEE, NOT SURE WHAT SIDES Past Anesthesia/Blood Transfusion Reactions: No Reported Reaction Past Psychological History: No Psychological Hx Reported Smoking Status: Never smoker Past Alcohol Use History: None Reported Past Drug Use History: None Reported - Past Family History Mother Family Medical History: Cancer Medications and Allergies Home Medications Medication Instructions Recorded Confirmed Type Alendronate Sodium [Fosamax] 70 mg PO SA 08/02/16 11/16/19 History Benazepril [Lotensin] 10 mg PO DAILY 08/02/16 11/16/19 History Calcium Carbonate [Calcium] 600 mg PO BID 08/02/16 11/16/19 History Cetirizine HCl 10 mg PO DAILY 08/02/16 11/16/19 History Chlorthalidone [Hygroton] 25 mg PO DAILY 08/02/16 11/16/19 History Colchicine [Colcrys] 0.6 mg PO DAILY 08/02/16 11/16/19 History Ergocalciferol [Vitamin D2] 50,000 unit PO Q30D 08/02/16 11/16/19 History FLUoxetine HCL [PROzac] 10 mg PO DAILY 08/02/16 11/16/19 History Ferrous Sulfate [Iron (65 MG 325 mg PO DAILY 08/02/16 11/16/19 History Elemental)] Levothyroxine Sodium [Synthroid] 25 mcg PO DAILY 08/02/16 11/16/19 History Omeprazole [PriLOSEC] 20 mg PO BID 08/02/16 11/16/19 History Potassium Chloride [Klor-Con M10] 10 meq PO DAILY 08/02/16 11/16/19 History Simvastatin 40 mg PO HS 08/02/16 11/16/19 History rOPINIRole HCL [Requip] 0.25 mg PO HS 08/02/16 11/16/19 History traZODone HCL [Desyrel] 100 mg PO HS 08/02/16 11/16/19 History Ibuprofen [Motrin] 600 mg PO Q6HR PRN 10/29/19 11/16/19 History Rivaroxaban [Xarelto] 10 mg PO DAILY #32 tab 11/16/19 Rx Sennosides [Senokot] 2 tab PO DAILY PRN #60 tablet 11/16/19 Rx HYDROcodone/APAP 5-325MG [Hollister 1 - 2 each PO Q4-6H PRN #50 tab 11/18/19 Rx 5-325] Allergies Allergy/AdvReac Type Severity Reaction Status Date / Time Penicillins Allergy Anaphylaxis Verified 11/16/19 10:15 aspirin AdvReac Swelling Verified 11/16/19 10:15 red dye AdvReac Itching Verified 11/16/19 10:15 Sulfa (Sulfonamide AdvReac Nausea & Verified 11/16/19 10:15 Antibiotics) Vomiting Physical Exam Vitals: Vital Signs Temp Pulse Pulse Pulse Resp BP BP 11/21/19 08:00 80 16 11/21/19 06:54 97.8 F 80 16 115/69 11/21/19 01:38 98.1 F 79 16 95/63 11/20/19 19:33 98.5 F 89 18 112/74 11/20/19 16:34 97.9 F 79 16 101/69 11/20/19 15:54 11/20/19 15:12 88 16 11/20/19 14:36 98.1 F 85 16 90/57 11/20/19 14:10 97.7 F 88 17 115/66 11/20/19 14:06 98 F 90 16 93/55 11/20/19 13:56 97.9 F 91 17 97/61 Pulse Ox 11/21/19 08:00 11/21/19 06:54 94 L 11/21/19 01:38 98 11/20/19 19:33 99 11/20/19 16:34 100 11/20/19 15:54 99 11/20/19 15:12 11/20/19 14:36 98 11/20/19 14:10 98 11/20/19 14:06 98 11/20/19 13:56 98 Intake and Output 11/20/19 11/21/19 11/21/19 22:59 06:59 14:59 Intake Total 310 Output Total 300 Balance 10 Intake: Blood Product 310 Rc Pheres Irrad As 3 310 Unit [id number] Output: Urine 300 Other: Voiding Method Bedside Commode Bedside Commode # Voids 1 # Bowel Movements 1 On physical examination, patient appears comfortable in no apparent distress. HEAD: Normocephalic, atraumatic. EYES: No scleral icterus. No conjunctival injection. MOUTH: No lesions, tongue midline. NECK: Trachea midline, no gross abnormalities. CHEST: Clear to auscultation with no wheezing or rhonchi appreciated. HEART: S1-S2 appreciated. ABDOMEN: Soft, mildly tender to palpation. Bowel sounds are positive. No organomegaly. No guarding or rigidity. EXTREMITIES: No pedal edema. SKIN: No rashes, no jaundice. NEUROLOGIC: Alert and oriented x3. No focal deficits. Results CBC & Chem 7: 11/21/19 06:40 Labs: Abnormal Lab Results - Last 24 Hours (Table) 11/20/19 11/21/19 Range/Units 11:00 06:40 RBC 2.97 L (3.80-5.40) m/uL Hgb 8.8 L D (11.4-16.0) gm/dL Hct 27.2 L (34.0-46.0) % Plt Count 131 L (150-450) k/uL Crossmatch See Detail Microbiology - Last 24 Hours (Table) 11/16/19 14:00 Anaerobic Culture - Final Hip - Left 11/16/19 14:00 Anaerobic Culture - Final Hip - Left Abdominal x-ray: report reviewed (No acute findings on x-ray of the abdomen) Assessment and Plan (1) Abdominal pain Narrative/Plan: 74-year-old female with multiple medical comorbidities seen in the hospital for left hip pain the patient is status post left hip arthroplasty. The patient reports dull achy periumbilical abdominal pain that improves after bowel movements yesterday. She has a history of EGD in 2016 with findings of alondra ritis. She believes she also had EGD and colonoscopy in 2019. She denies any nausea or vomiting. She has a known history of reflux disease. Unclear etiology, may be related to uncontrolled reflux, gastritis/esophagitis, constipation, functional bowel disorder or other etiology. Current Visit: Yes Status: Acute Code(s): R10.9 - UNSPECIFIED ABDOMINAL PAIN SNOMED Code(s): 39384778 (2) History of gastritis Current Visit: Yes Status: Acute Code(s): Z87.19 - PERSONAL HISTORY OF OTHER DISEASES OF THE DIGESTIVE SYSTEM SNOMED Code(s): 029054287108241 Plan: Supportive care Okay for diet Continue Protonix twice daily Anemia lab evaluation ordered Nothing by mouth after midnight Plan for EGD tomorrow for further evaluation Continue bowel regimen with senna and docusate Thank you for allowing us to participate in the care of this patient we will continue to follow
[2019-11-21] MEDS: SODIUM CHLORIDE 0.9% 1,000 ML IV SCH (19:44)
[2019-11-21] MEDS: traZODone HCL 100 MG TAB PO SCH (20:46)
[2019-11-21] MEDS: SENNOSIDES-DOCUSATE SODIUM 1 EACH TAB PO SCH (20:46)
[2019-11-22] MEDS: HYDROcodone/APAP 5-325MG 1 EACH TAB PO PRN ×2 (00:22→13:51)
[2019-11-22] MEDS: LACTATED RINGERS 1,000 ML IV SCH (05:00)
[2019-11-22] MEDS: SODIUM CHLORIDE 0.9% 1,000 ML IV SCH (06:14)
[2019-11-22] MEDS: LEVOTHYROXINE 25 MCG TAB PO SCH ×2 (06:15→13:51)
[2019-11-22 07:01] LABS: Reticulocyte % 2.3 % (0.5-2.0)
[2019-11-22] MEDS: LISINOPRIL 10 MG TAB PO SCH (08:33)
[2019-11-22] MEDS: CHLORTHALIDONE 25 MG TAB PO SCH (08:34)
--- NOTE | 2019-11-22 10:16 | P.PN ---
Subjective Progress Note Date: 11/22/19 Principal diagnosis: Status post left revision total hip arthroplasty This is a 74 year-old female post left revision total hip arthroplasty. This is post-op day 6. The patient was evaluated at the bedside today. The patient denies shortness of breath, and chest pain this morning. She does state that her abdominal pain has improved slightly. She continues to have bowel movement. GI has seen her and plans for an EGD afternoon today. Denies any nausea or vomiting. She states her pain is controlled at this time. The patient has been up with physical therapy and ambulates to the bathroom. She had 1 unit of packed red blood cells on Friday. Hgb is 8.8 yesterday. Denies any lightheadedness or dizziness when up out of bed. Objective - Vital Signs Vital signs: Vital Signs Temp 98.2 F 11/22/19 07:00 Pulse 83 11/22/19 07:00 Resp 16 11/22/19 07:00 BP 111/55 11/22/19 07:00 Pulse Ox 99 11/22/19 07:00 Intake & Output 11/21/19 11/22/19 11/22/19 18:59 06:59 18:59 Intake Total 560 240 Output Total 600 Balance -40 240 Intake: Intake, IV Titration 160 Amount Sodium Chloride 0.9% 1, 160 000 ml @ 65 mls/hr IV . [id number] [facility] Rx#:[id number] Oral 400 240 Output: Urine 600 Other: Voiding Method Bedside Commode # Voids 1 1 # Bowel Movements 1 1 - Exam The patient does not appear in acute distress. Alert and orientated x3. Abdomen is tender to palpation to all 4 quadrants. Abdomen is soft and non distended. Dressing is clean dry and intact. Calf is soft and nontender. Good foot and ankle motion without difficulty. Sensation and circulatory status is intact. - Labs CBC & Chem 7: 11/21/19 06:40 Labs: Abnormal Lab Results - Last 24 Hours (Table) 11/22/19 Range/Units 06:40 Retic Count 2.3 H (0.5-2.0) % Assessment and Plan (1) Failure of left total hip arthroplasty Current Visit: Yes Status: Acute Code(s): T84.011A - BROKEN INTERNAL LEFT HIP PROSTHESIS, INITIAL ENCOUNTER SNOMED Code(s): 839028775 (2) History of revision of total replacement of left hip joint Current Visit: Yes Status: Acute Code(s): Z96.642 - PRESENCE OF LEFT ARTIFICIAL HIP JOINT SNOMED Code(s): 050289653764706 Plan: 1. Continue pain control 2. Anticoagulation with Xarelto 3. Continue physical therapy and ambulation 4. Continue to follow closely with internal medicine and GI with abdominal pain 5. Anticipate discharge to rehab when medically cleared.
[2019-11-22] MEDS ORDERED: PROPOFOL 10 MG/ML 20 ML VIAL IV ONE (12:43)
[2019-11-22] MEDS ORDERED: LACTATED RINGERS 500 ML IV ONE (13:00)
--- NOTE | 2019-11-22 13:16 | P.PCN ---
Date of Procedure: 11/22/19 Description of Procedure: BRIEF HISTORY: 74-year-old female with multiple medical comorbidities seen in the hospital for left hip pain the patient is status post left hip arthroplasty. The patient reports dull achy periumbilical abdominal pain that improves after bowel movements yesterday. She has a history of EGD in 2016 with findings of gastritis. She believes she also had EGD and colonoscopy in 2019. She denies any nausea or vomiting. She has a known history of reflux disease. PROCEDURE PERFORMED: Esophagogastroduodenoscopy with biopsy. PREOPERATIVE DIAGNOSIS: Abdominal pain, anemia. ESTIMATED BLOOD LOSS: Minimal. IV sedation per anesthesia. PROCEDURE: After informed consent was obtained, the patient was brought into the endoscopy unit. IV sedation was administered by Anesthesia under continuous monitoring. Initially the Olympus GIF-190 video endoscope was inserted into the mouth. Esophagus intubated without any difficulty. It was gradually advanced into the stomach and duodenum and carefully examined. The bulb and the second part of the duodenum appeared normal, with biopsies taken. The scope at this time was withdrawn to the stomach, adequately insufflated with air, and upon careful examination, mucosa of the antrum, body, cardia and the fundus appeared normal, except for some mild erythema in a linear fashion in the antrum and body suggestive of arthritis with biopsies of the antrum and body. The scope was then withdrawn into the esophagus. The GE junction was located at 34 cm from the incisors with a 2 cm hiatal hernia noted. The esophagus appeared normal. There were no erosions or ulcerations seen and the patient tolerated the procedure well. IMPRESSION: 1. Mild gastritis antrum and body, biopsied. 2. Duodenal biopsies. 3. Small hiatal hernia. RECOMMENDATIONS: The findings of this examination were discussed with the patient. Okay to resume diet in medications. Continue Protonix therapy. Await pathology from biopsies. Await other laboratory evaluation.
--- NOTE | 2019-11-22 13:36 | CDI ---
Expected Documentation Clarification Form Date: 11/17/2019 02:10:00 PM From: Marina Velasquez RN, CCDS Admit Date: 11/16/2019 09:56:00 AM Patient Name: Lc Carranza Visit Number: [id number] Discharge Date: ATTENTION: The Clinical Documentation Specialists (CDI) and [facility] Coding Staff appreciate your assistance in clarifying documentation. Please respond to the clarification below the line at the bottom and electronically sign. The CDI & [facility] Coding staff will review the response and follow-up if needed. Please note: Queries are made part of the Legal Health Record. If you have any questions, please contact the author of this message via ITS. Dr. John Sanchez On 11/19/19 documentation has acute blood loss anemia secondary to surgery. History/Risk Factors: Failed left total hip arthroplasty Clinical indicators: 74 -year-old female who complained of significant pain present for an elective repair of her failed left total hip arthroplasty. In the Operative note an estimated blood of 750 mls, with 316 mls returned. with Cell Saver. This is still and estimated blood volume deficit of 434 mls. 11/05/19 PAT Labs shows Hemoglobin 11.6, Hematocrit 35.2 11/17/19 Hemoglobin: 8.9 11/17/19 Hematocrit: 27.0 Treatment: Monitoring CBD Daily 0.9% saline @ 65 mls/hr Please clarify if the acute blood loss anemia secondary to surgery is; Expected Unexpected (further specify) Other, please specify Unable to determine (Last Revision: July 2017) MTDD
[2019-11-22] MEDS: RIVAROXABAN 10 MG TAB PO SCH (13:50)
[2019-11-22] MEDS: FLUoxetine HCL 10 MG CAP PO SCH (13:51)
[2019-11-22] MEDS: PANTOPRAZOLE 40 MG TABLET PO SCH (13:51)
[2019-11-22] MEDS: POTASSIUM CHLORIDE ER 10 MEQ TAB.ER.PRT PO SCH (13:51)
[2019-11-22] MEDS: LORATADINE 10 MG TAB PO SCH (13:51)
[2019-11-22] MEDS: COLCHICINE 0.6 MG EACH PO SCH (13:52)
[2019-11-22 14:59] VITALS: BP 100/62; PULSE 76; RESP 18; TEMP 98.1
[2019-11-22 15:57] LABS: Folate, Serum 7.3 ng/mL
[2019-11-22 16:12] LABS: % Iron Saturation 12.89 (12.00-45.00); Ferritin 413.5 ng/mL (10.0-291.0)
--- NOTE | 2019-11-22 16:55 | DS ---
DISCHARGE SUMMARY CHIEF COMPLAINT: Pain left hip. HISTORY OF PRESENT ILLNESS AND PHYSICAL EXAM: Details of this lady's history and physical can be bounty found in the initial workup. LABORATORY STUDIES: While she was in a hospital she had laboratory studies, details of which can be found in the laboratory section of her chart. COURSE IN HOSPITAL: After admission, she was placed on bedrest, started on intravenous and taken the operating room for revision of left hip. Postoperatively she did fairly well, but she is complaining a lot of epigastric pain and her hemoglobin started to drop. She got down as low as 7 and received unit of packed cells. She continued to be in discomfort despite being started on a proton pump inhibitor. She was seen by Gastroenterology and taken to the endoscopy suite where she was found to have only gastritis. Hemoglobin is up around 8 and she is doing well enough it was felt she could go to [facility] and she will be transferred there on . FINAL DIAGNOSIS: 1. Osteoarthritis of left hip. 2. Gastritis. 3. Hypertension. OPERATIONS: Revision of left hip and upper GI endoscopy consultations orthopedics and gastroenterology she She is improved. MMODL / IJN: [id number] /
--- NOTE | 2019-11-23 05:32 | PN ---
PROGRESS NOTE DATE OF SERVICE: 11/21/2019 CHIEF COMPLAINT: Status post left hip revision and epigastric pain. HISTORY OF PRESENT ILLNESS: This lady is doing fairly well and she is going tomorrow for an upper endoscopy. Hemoglobin is leveled off above 7. PHYSICAL EXAM: She is pale. Chest is clear. Cardiac exam is normal. Abdomen is soft and nontender. IMPRESSION: 1. Status post left hip revision. 2. Anemia. 3. Epigastric pain. PLAN: She is having an upper GI endoscopy tomorrow. MMODL / IJN: [id number] /
== END 2019-11-22 16:51 | DRG 467 ==
LOC: EDSTATUS 11-16 07:00 → 2ORMAIN 11-16 09:56 → 4SSUR 11-16 15:11
PROVIDERS: ADMIT Orthopaedic Surgery; ATTEND Orthopaedic Surgery
PROC: 0SPS0JZ Removal of Synthetic Substitute from Left Hip Joint, Femoral Surface, Open Approach (ICD-10-PCS; principal; 2019-11-16 11:25)
PROC: 0SPB09Z Removal of Liner from Left Hip Joint, Open Approach (ICD-10-PCS; principal; 2019-11-16 11:25)
PROC: 0SRS0JA Replacement of Left Hip Joint, Femoral Surface with Synthetic Substitute, Uncemented, Open Approach (ICD-10-PCS; principal; 2019-11-16 11:25)
PROC: 0SUE09Z Supplement Left Hip Joint, Acetabular Surface with Liner, Open Approach (ICD-10-PCS; principal; 2019-11-16 11:25)
PROC: 30233N1 Transfusion of Nonautologous Red Blood Cells into Peripheral Vein, Percutaneous Approach (ICD-10-PCS; 2019-11-20)
PROC: 0DB98ZX Excision of Duodenum, Via Natural or Artificial Opening Endoscopic, Diagnostic (ICD-10-PCS; 2019-11-22)
PROC: 0DB68ZX Excision of Stomach, Via Natural or Artificial Opening Endoscopic, Diagnostic (ICD-10-PCS; 2019-11-22)
PROC: 0DB78ZX Excision of Stomach, Pylorus, Via Natural or Artificial Opening Endoscopic, Diagnostic (ICD-10-PCS; 2019-11-22)
DX: T84.031A Mechanical loosening of internal left hip prosthetic joint, initial encounter (principal); D62 Acute posthemorrhagic anemia; I10 Essential (primary) hypertension; E78.5 Hyperlipidemia, unspecified; M16.12 Unilateral primary osteoarthritis, left hip; F32.9 Major depressive disorder, single episode, unspecified; K44.9 Diaphragmatic hernia without obstruction or gangrene; K21.9 Gastro-esophageal reflux disease without esophagitis; M81.0 Age-related osteoporosis without current pathological fracture; E03.9 Hypothyroidism, unspecified; K29.70 Gastritis, unspecified, without bleeding; Y79.2 Prosthetic and other implants, materials and accessory orthopedic devices associated with adverse incidents; Z79.83 Long term (current) use of bisphosphonates; Z79.899 Other long term (current) drug therapy; Z79.890 Hormone replacement therapy; Z87.19 Personal history of other diseases of the digestive system; Z90.49 Acquired absence of other specified parts of digestive tract; Z98.890 Other specified postprocedural states; Z91.048 Other nonmedicinal substance allergy status; Z96.652 Presence of left artificial knee joint; Z88.6 Allergy status to analgesic agent; Z88.5 Allergy status to narcotic agent; Z88.0 Allergy status to penicillin; Z88.2 Allergy status to sulfonamides; Z83.3 Family history of diabetes mellitus; Z80.9 Family history of malignant neoplasm, unspecified
CPT/HCPCS: 43239; 73501; 74018; 82607; 82728; 82746; 83540; 83550; 84466; 85025; 85027; 85045; 86850; 86891; 86900; 86901; 86920; 87070; 87075; 87205; 88305; 94760

== ENCOUNTER 2019-11-25 10:12 | Emergency (ER) | payer MEDICARE, OTHER ==
--- NOTE | 2019-11-25 10:24 | ED ---
Chest Pain HPI - General Stated Complaint: Chest pain Time Seen by Provider: 11/25/19 10:12 Source: patient, EMS, RN notes reviewed Mode of arrival: EMS - History of Present Illness Initial Comments: This is a 74-year-old female who recently had a left hip revision was in a [facility] who had the onset this morning around 2:58 AM that woke her up from sleep of chest pain it was stabbing and sharp in nature she states it's left sided chest but also has some left lower quadrant abdominal pain. She was noted by staff and paramedics have hypotension during blood pressures of 90s over 50s EMS did record 60/30 later 101/47. No nausea vomiting she has a chronic cough no dysuria no hematuria no diarrhea constipation no other modifying factors at this time. She states the pain is [id number] MD Complaint: chest pain, other - Related Data Home Medications Medication Instructions Recorded Confirmed Benazepril [Lotensin] 10 mg PO DAILY 08/02/16 11/25/19 Calcium Carbonate [Calcium] 600 mg PO BID@0800,0 08/02/16 11/25/19 Cetirizine HCl 10 mg PO DAILY 08/02/16 11/25/19 Chlorthalidone [Hygroton] 25 mg PO DAILY 08/02/16 11/25/19 Colchicine [Colcrys] 0.6 mg PO DAILY 08/02/16 11/25/19 FLUoxetine HCL [PROzac] 10 mg PO DAILY 08/02/16 11/25/19 Ferrous Sulfate [Iron (65 MG 325 mg PO DAILY@1700 08/02/16 11/25/19 Elemental)] Levothyroxine Sodium [Synthroid] 25 mcg PO DAILY@0600 08/02/16 11/25/19 Omeprazole [PriLOSEC] 20 mg PO BID@0800,1700 08/02/16 11/25/19 Potassium Chloride [Klor-Con M10] 10 meq PO DAILY@0 08/02/16 11/25/19 Simvastatin 40 mg PO HS 08/02/16 11/25/19 rOPINIRole HCL [Requip] 0.25 mg PO HS 08/02/16 11/25/19 traZODone HCL [Desyrel] 100 mg PO HS 08/02/16 11/25/19 Bisacodyl [Dulcolax] 10 mg RECTAL DAILY@0600 PRN 11/25/19 11/25/19 HYDROcodone/APAP 5-325MG [[place] 1 - 2 tab PO Q6H PRN 11/25/19 11/25/19 5-325] Lactose-Reduced Food [Ensure Plus] 120 ml PO TID-W/MEALS 11/25/19 11/25/19 Magnesium Hydroxide [Milk of 2,400 mg PO DAILY PRN 11/25/19 11/25/19 Magnesia] Na Phos,M-B/Na Phos,Di-Ba [Fleet 133 ml RECTAL DAILY PRN 11/25/19 11/25/19 Adult] Rivaroxaban [Xarelto] 10 mg PO DAILY@1700 11/25/19 11/25/19 Sennosides [Senokot] 17.2 mg PO DAILY PRN 11/25/19 11/25/19 Allergies Allergy/AdvReac Type Severity Reaction Status Date / Time Penicillins Allergy Anaphylaxis Verified 11/25/19 11:10 aspirin AdvReac Swelling Verified 11/25/19 11:10 red dye AdvReac Itching Verified 11/25/19 11:10 Sulfa (Sulfonamide AdvReac Nausea & Verified 11/25/19 11:10 Antibiotics) Vomiting Review of Systems ROS Statement: Those systems with pertinent positive or pertinent negative responses have been documented in the HPI. ROS Other: All systems not noted in ROS Statement are negative. EKG Findings - EKG Results: EKG: interpreted by ERMD, sinus rhythm (Sinus rhythm a 77 appear interval 196 QRS duration 70 QT since QTC 390/450 low-voltage QRS nonspecific inferior configuration) Past Medical History Past Medical History: Hyperlipidemia, Hypertension, Memory Impairment, Thyroid Disorder Additional Past Medical History / Comment(s): SINUS. OSTEOPOROSIS History of Any Multi-Drug Resistant Organisms: None Reported Past Surgical History: Appendectomy, Cholecystectomy, Joint Replacement Additional Past Surgical History / Comment(s): TOTAL HIP AND KNEE, NOT SURE WHAT SIDES Past Anesthesia/Blood Transfusion Reactions: No Reported Reaction Past Psychological History: No Psychological Hx Reported Smoking Status: Never smoker Past Alcohol Use History: None Reported Past Drug Use History: None Reported - Past Family History Mother Family Medical History: Cancer General Exam - General Exam Comments Initial Comments: This is a well-developed asthenic appearing female who is awake alert oriented 3 General appearance: alert Head exam: Present: atraumatic, normocephalic, normal inspection Eye exam: Present: normal appearance, PERRL, EOMI. Absent: scleral icterus, conjunctival injection, periorbital swelling ENT exam: Present: mucous membranes dry Neck exam: Present: normal inspection, full ROM, other (No stridor JVD or bruits). Absent: tenderness, meningismus, lymphadenopathy Respiratory exam: Present: normal lung sounds bilaterally, chest wall tenderness (Reproducible tenderness palpation along the left costal sternal margin with no step-off or crepitation. This does seem to reproduce the patient's). Absent: respiratory distress, wheezes, rales, rhonchi, stridor Cardiovascular Exam: Present: regular rate, normal rhythm, normal heart sounds. Absent: systolic murmur, diastolic murmur, rubs, gallop, clicks GI/Abdominal exam: Present: soft, tenderness (Left lower quadrant tenderness patient without guarding or rebound no masses or bruits), normal bowel sounds. Absent: distended, guarding, rebound, rigid Rectal exam: Present: deferred Extremities exam: Present: full ROM, normal capillary refill, other. Absent: tenderness, pedal edema, joint swelling, calf tenderness Back exam: Present: normal inspection Neurological exam: Present: alert, oriented X3, CN II-XII intact Psychiatric exam: Present: normal affect, normal mood Skin exam: Present: warm, dry, intact, normal color. Absent: rash Course Vital Signs 11/25/19 11/25/19 11/25/19 10:21 11:30 12:31 Temperature 98.4 F Pulse Rate 80 83 83 Respiratory 16 24 20 Rate Blood Pressure 103/54 101/56 118/64 O2 Sat by Pulse 100 98 100 Oximetry Chest Pain MDM - MDM I did review the imaging and reports no acute findings. The case was discussed with the patient and multiple family members patient will be discharged presentation is consistent with chest wall pain. CAT scan shows no evidence of diverticulitis no does show diverticulosis and left lower quadrants likely secondary to the healing process of the left hip surgery. Disposition Clinical Impression: Chest wall syndrome, Costochondritis Disposition: HOME SELF-CARE Condition: Good Instructions (If sedation given, give patient instructions): Costochondritis (ED) Is patient prescribed a controlled substance at d/c from ED?: No Referrals: Pradeep Serrato MD [Primary Care Provider] - 1-2 days
[2019-11-25 10:39] LABS: Basophils % (A) 0 %; Eosinophils # (A) 0.1 k/uL (0-0.7); Eosinophils % (A) 2 %; HGB 8.2 gm/dL (11.4-16.0); Lymphocytes # (A) 2.5 k/uL (1.0-4.8); Lymphocytes % (A) 34 %; MCH 29.9 pg (25.0-35.0); MCHC 32.8 g/dL (31.0-37.0); MCV 91.3 fL (80.0-100.0); Mean Platelet Volume 7.8; Monocytes # (A) 0.4 k/uL (0-1.0); Monocytes % (A) 5 %; Neutrophils # (A) 4.1 k/uL (1.3-7.7); Neutrophils % (A) 57 %; Platelet Count 173 k/uL (150-450); RBC 2.73 m/uL (3.80-5.40); RDW 13.7 % (11.5-15.5); WBC 7.3 k/uL (3.8-10.6)
[2019-11-25 11:01] LABS: Albumin 2.3 g/dL (3.5-5.0); Calcium 7.6 mg/dL (8.4-10.2); Magnesium 1.6 mg/dL (1.6-2.3); Potassium 3.6 mmol/L (3.5-5.1); Total Bilirubin 0.5 mg/dL (0.2-1.3); Total Protein 4.5 g/dL (6.3-8.2)
--- NOTE | 2019-11-25 11:06 | XR ---
EXAMINATION TYPE: XR chest 2V DATE OF EXAM: 11/25/2019 COMPARISON: NONE HISTORY: Chest and abdominal pain. TECHNIQUE: Frontal and lateral views of the chest are obtained. FINDINGS: There is chronic parenchymal change without suspicious focal air space opacity, pleural ef fusion, or pneumothorax seen. The cardiac silhouette size is upper limits of normal. The osseous s tructures are demineralized. IMPRESSION: Chronic changes without acute pulmonary process.
[2019-11-25 11:07] LABS: INR 0.9 (<1.2); Partial Thromboplastin Time 20.3 sec (22.0-30.0); Prothrombin Time 9.6 sec (9.0-12.0)
[2019-11-25 11:09] LABS: D-Dimer 3.71 mg/L FEU (<0.60)
--- NOTE | 2019-11-25 11:09 | XR ---
EXAMINATION TYPE: XR KUB DATE OF EXAM: 11/25/2019 10:41 AM CLINICAL HISTORY: Abdominal pain. TECHNIQUE: Two supine KUB images of the abdomen are obtained. COMPARISON: Abdominal x-ray 4 days earlier.. FINDINGS: Scattered gas is seen in non-distended small bowel loops. Gas and fecal material is seen in non-distended colon and rectum. Cholecystectomy clips are redemonstrated. Metallic artifact from lef t hip arthroplasty again seen with redemonstration of protrusio acetabula. Occasional left-sided pelv ic phlebolith. IMPRESSION: Overall nonobstructive bowel gas pattern remains present.
[2019-11-25 11:27] LABS: Appearance,Urine Cloudy (Clear); Bacteria,Urine Rare /hpf; Bilirubin,Urine Negative (Negative); Blood,Urine Negative (Negative); Color,Urine Yellow; Glucose,Urine (UA) Negative (Negative); Ketones,Urine Negative (Negative); Leukocyte Esterase,Urine Trace (Negative); Mucus,Urine Rare /hpf; Nitrite,Urine Negative (Negative); PH, Urine 5.5 (5.0-8.0); Protein,Urine Negative (Negative); Specific Gravity,Urine 1.016 (1.001-1.035); Squamous Epithelial Cell,Urine 5 /hpf (0-4); Urobilinogen,Urine <2.0 mg/dL (<2.0); WBC,Urine 4 /hpf (0-5)
[2019-11-25] MEDS ORDERED: SODIUM CHLORIDE 0.9% 1,000 ML IV STA (12:08)
[2019-11-25 12:31] VITALS: RESP 20
--- NOTE | 2019-11-25 13:03 | CT ---
EXAMINATION TYPE: CT abdomen pelvis w con DATE OF EXAM: 11/25/2019 HISTORY: Pulmonary embolism, left lower quadrant pain CT DLP: 920mGycm Automated Exposure Control for Dose Reduction was Utilized. CONTRAST: CT scan of the abdomen and pelvis is performed with IV Contrast, patient injected with 80 mL of Isovu e 370. COMPARISON: Chest x-ray dated 11/25/2019 FINDINGS: There is extensive patient motion limiting the images and examination. LUNG BASES: Discussed on the CTA chest of the same date. LIVER/GB: Linear low-density near the fissure for the falciform ligament most commonly relates to foc al fatty infiltration.. PANCREAS: Nondiagnostic evaluation given patient motion. SPLEEN: No significant abnormality is seen. ADRENALS: No significant abnormality is seen. KIDNEYS: 4.3 cm benign renal cyst of the right kidney. No hydronephrosis of either kidney. BOWEL: Descending duodenal diverticulum incidentally seen. There are numerous colonic diverticula wit hout pericolonic fat stranding. No dilated large or small bowel. Small hiatal hernia. LYMPH NODES: No greater than 1cm abdominal or pelvic lymph nodes are appreciated. OSSEOUS STRUCTURES: Postsurgical changes are seen of the left hip with subcutaneous edema throughout the left posterior lateral flank and more pronounced in the left hip. The visualized portions of the proximal left femoral diaphysis appear comminuted and distal femoral stem of the arthroplasty is susp ected to be displaced. There is diffuse osseous demineralization. IMPRESSION: Extremely limited exam given extensive patient motion. Radiographs of the left femur are recommended to evaluate for potential displacement of the distal femoral stem and left femoral fractu re. Postsurgical changes are seen of the left hip as well. No acute intra-abdominal process seen give n the limitations described above.
--- NOTE | 2019-11-25 13:05 | CT ---
EXAMINATION TYPE: CT angio chest DATE OF EXAM: 11/25/2019 COMPARISON: Chest x-ray earlier today. HISTORY: Pulmonary embolism, left lower quadrant pain CT DLP: 311.6 mGycm. Automated Exposure Control for Dose Reduction was Utilized. CONTRAST: CTA scan of the thorax is performed with IV Contrast, patient injected with 80 mL of Isovue 370, pulm onary embolism protocol. MIP Images are created on CT scanner and reviewed. FINDINGS: LUNGS: Some dependent atelectasis and/or edema bilateral lower lobes with additional findings present along fissures. Somewhat by motion artifact degradation. No obvious masses. No suspicious focal cons olidation. No pleural effusion or pneumothorax. MEDIASTINUM: There is satisfactory enhancement of the pulmonary artery and its branches, there is no CT evidence for pulmonary embolism. There are no greater than 1 cm hilar or mediastinal lymph nodes. No cardiomegaly or pericardial effusion is seen. Ascending aorta measures up to 3.6 cm axial image 49 at level of main pulmonary artery. Four-vessel aortic arch is seen which is normal variant. There is heterogeneous enlarged thyroid with substernal extension consistent with diffuse goiter. This cor relates with ultrasound February 13, 2018. There is intra-abdominal hernia of mediastinal fat causing di stal esophagus to be deviated to left of midline. OTHER: Please refer to same day CT abdomen report for complete details on the upper abdomen. IMPRESSION: No CT evidence for acute pulmonary embolism. No suspicious acute focal pulmonary infiltra te. Perhaps mild underlying edema. Correlate clinically. Underlying thyroid goiter redemonstrated.
[2019-11-25] MEDS ORDERED: HYDROmorphone 1 MG/ML 1 ML SYRINGE IVP STA (13:42)
--- NOTE | 2019-11-25 13:42 | ED ---
Medical Decision Making - Lab Data Result diagrams: 11/25/19 10:25 11/25/19 10:25 Lab Results 11/25/19 11/25/19 11/25/19 Range/Units 10:25 10:25 10:25 WBC 7.3 (3.8-10.6) k/uL RBC 2.73 L (3.80-5.40) m/uL Hgb 8.2 L (11.4-16.0) gm/dL Hct 25.0 L (34.0-46.0) % MCV 91.3 (80.0-100.0) fL MCH 29.9 (25.0-35.0) pg MCHC 32.8 (31.0-37.0) g/dL RDW 13.7 (11.5-15.5) % Plt Count 173 (150-450) k/uL Neutrophils % 57 % Lymphocytes % 34 % Monocytes % 5 % Eosinophils % 2 % Basophils % 0 % Neutrophils # 4.1 (1.3-7.7) k/uL Lymphocytes # 2.5 (1.0-4.8) k/uL Monocytes # 0.4 (0-1.0) k/uL Eosinophils # 0.1 (0-0.7) k/uL Basophils # 0.0 (0-0.2) k/uL PT 9.6 (9.0-12.0) sec INR 0.9 (<1.2) APTT 20.3 L (22.0-30.0) sec D-Dimer 3.71 H (<0.60) mg/L FEU Sodium 138 (137-145) mmol/L Potassium 3.6 (3.5-5.1) mmol/L Chloride 108 H (98-107) mmol/L Carbon Dioxide 25 (22-30) mmol/L Anion Gap 5 mmol/L BUN 28 H (7-17) mg/dL Creatinine 1.38 H (0.52-1.04) mg/dL Est GFR (CKD-EPI)AfAm 43 (>60 ml/min/1.73 sqM) Est GFR (CKD-EPI)NonAf 37 (>60 ml/min/1.73 sqM) Glucose 100 H (74-99) mg/dL Calcium 7.6 L (8.4-10.2) mg/dL Magnesium 1.6 (1.6-2.3) mg/dL Total Bilirubin 0.5 (0.2-1.3) mg/dL AST 29 (14-36) U/L ALT 21 (4-34) U/L Alkaline Phosphatase 68 (38-126) U/L Creatine Kinase 84 (30-135) U/L Troponin I (0.000-0.034) ng/mL Total Protein 4.5 L (6.3-8.2) g/dL Albumin 2.3 L (3.5-5.0) g/dL Lipase 74 (23-300) U/L Urine Color Urine Appearance (Clear) Urine pH (5.0-8.0) Ur Specific [place] (1.001-1.035) Urine Protein (Negative) Urine Glucose (UA) (Negative) Urine Ketones (Negative) Urine Blood (Negative) Urine Nitrite (Negative) Urine Bilirubin (Negative) Urine Urobilinogen (<2.0) mg/dL Ur Leukocyte Esterase (Negative) Urine WBC (0-5) /hpf Ur Squamous Epith Cells (0-4) /hpf Urine Bacteria (None) /hpf Urine Mucus (None) /hpf 11/25/19 11/25/19 Range/Units 10:25 11:15 WBC (3.8-10.6) k/uL RBC (3.80-5.40) m/uL Hgb (11.4-16.0) gm/dL Hct (34.0-46.0) % MCV (80.0-100.0) fL MCH (25.0-35.0) pg MCHC (31.0-37.0) g/dL RDW (11.5-15.5) % Plt Count (150-450) k/uL Neutrophils % % Lymphocytes % % Monocytes % % Eosinophils % % Basophils % % Neutrophils # (1.3-7.7) k/uL Lymphocytes # (1.0-4.8) k/uL Monocytes # (0-1.0) k/uL Eosinophils # (0-0.7) k/uL Basophils # (0-0.2) k/uL PT (9.0-12.0) sec INR (<1.2) APTT (22.0-30.0) sec D-Dimer (<0.60) mg/L FEU Sodium (137-145) mmol/L Potassium (3.5-5.1) mmol/L Chloride (98-107) mmol/L Carbon Dioxide (22-30) mmol/L Anion Gap mmol/L BUN (7-17) mg/dL Creatinine (0.52-1.04) mg/dL Est GFR (CKD-EPI)AfAm (>60 ml/min/1.73 sqM) Est GFR (CKD-EPI)NonAf (>60 ml/min/1.73 sqM) Glucose (74-99) mg/dL Calcium (8.4-10.2) mg/dL Magnesium (1.6-2.3) mg/dL Total Bilirubin (0.2-1.3) mg/dL AST (14-36) U/L ALT (4-34) U/L Alkaline Phosphatase (38-126) U/L Creatine Kinase (30-135) U/L Troponin I <0.012 (0.000-0.034) ng/mL Total Protein (6.3-8.2) g/dL Albumin (3.5-5.0) g/dL Lipase (23-300) U/L Urine Color Yellow Urine Appearance Cloudy H (Clear) Urine pH 5.5 (5.0-8.0) Ur Specific [place] 1.016 (1.001-1.035) Urine Protein Negative (Negative) Urine Glucose (UA) Negative (Negative) Urine Ketones Negative (Negative) Urine Blood Negative (Negative) Urine Nitrite Negative (Negative) Urine Bilirubin Negative (Negative) Urine Urobilinogen <2.0 (<2.0) mg/dL Ur Leukocyte Esterase Trace H (Negative) Urine WBC 4 (0-5) /hpf Ur Squamous Epith Cells 5 H (0-4) /hpf Urine Bacteria Rare H (None) /hpf Urine Mucus Rare H (None) /hpf Disposition Clinical Impression: Chest wall syndrome, Costochondritis, Bronchospasm Disposition: HOME SELF-CARE Condition: Good Instructions (If sedation given, give patient instructions): Costochondritis (ED), Bronchospasm (ED) Prescriptions: Albuterol Inhaler [Ventolin Hfa Inhaler] 2 puff INHALATION Q6HR PRN #1 inhaler PRN Reason: Dyspnea Is patient prescribed a controlled substance at d/c from ED?: No Referrals: Pradeep Serrato MD [Primary Care Provider] - 1-2 days
[2019-11-25 14:10] VITALS: BP 106/70; PULSE 93; TEMP 99
== END 2019-11-25 14:10 | disposition home or self-care (01) ==
LOC: EC 10:12
DX: M94.0 Chondrocostal junction syndrome [Tietze] (principal); J98.01 Acute bronchospasm; I10 Essential (primary) hypertension; E78.5 Hyperlipidemia, unspecified; E07.9 Disorder of thyroid, unspecified; Z79.890 Hormone replacement therapy; Z79.01 Long term (current) use of anticoagulants; Z79.899 Other long term (current) drug therapy; Z88.0 Allergy status to penicillin; Z88.2 Allergy status to sulfonamides; Z88.6 Allergy status to analgesic agent; Z91.02 Food additives allergy status; Z96.659 Presence of unspecified artificial knee joint; Z96.649 Presence of unspecified artificial hip joint
CPT/HCPCS: 36415; 93005; 85379; 80053; 82550; 83690; 83735; 84484; 85025; 85610; 85730; 81001; 71046; 74018; 71275; 74177; 99285; 96374; 96361; J1170; Q9967

== ENCOUNTER 2023-09-04 15:17 | Inpatient (IN) | payer MEDICARE, OTHER ==
--- NOTE | 2023-09-04 16:08 | ED ---
General Adult HPI - General Chief complaint: Chest Pain Stated complaint: CHEST PAIN Time Seen by Provider: 09/04/23 15:47 Source: patient, EMS, RN notes reviewed, old records reviewed Mode of arrival: EMS - History of Present Illness Initial comments: 78-year-old female presenting with left-sided chest pain which began prior to arrival.. No associated dyspnea. No associated vomiting or diaphoresis. Patient states the pain is been there today but she is also had this in the past. Denies abdominal pain. She is currently in the [facility] and states that she has had a recent neck fracture. She's in an [place] collar. No recent fall. No wheeze recent injury. No fever. Pain worse with movement - Related Data Home Medications Medication Instructions Recorded Confirmed Colchicine [Colcrys] 0.6 mg PO DAILY@89908/02/16 09/04/23 Levothyroxine Sodium [Synthroid] 25 mcg PO DAILY@0608/02/16 09/04/23 Omeprazole [PriLOSEC] 20 mg PO DAILY@89908/02/16 09/04/23 Potassium Chloride [Klor-Con M10] 30 meq PO DAILY@89908/02/16 09/04/23 rOPINIRole HCL [Requip] 0.25 mg PO HS@209908/02/16 09/04/23 Acetaminophen [Tylenol] 650 mg PO Q6H PRN 09/04/23 09/04/23 Alendronate Sodium [Fosamax] 70 mg PO WEATHERS@89909/04/23 09/04/23 Atorvastatin Calcium [Lipitor] 40 mg PO HS@209909/04/23 09/04/23 Diclofenac Sodium [Voltaren] 25 mg PO BID@899,209909/04/23 09/04/23 FLUoxetine HCL 40 mg PO DAILY@89909/04/23 09/04/23 Famotidine [Pepcid] 20 mg PO DAILY@89909/04/23 09/04/23 Fluticasone Nasal [place] [Flonase 1 spray EA NOSTRIL DAILY@89909/04/23 09/04/23 Nasal [place]] Losartan [Cozaar] 25 mg PO DAILY@89909/04/23 09/04/23 Montelukast [Singulair] 10 mg PO DAILY@0900 09/04/23 09/04/23 oxyCODONE HCL [OxyIR] 5 mg PO Q6H PRN 09/04/23 09/04/23 traZODone HCL [Desyrel] 100 mg PO HS@2100 09/04/23 09/04/23 Allergies Allergy/AdvReac Type Severity Reaction Status Date / Time Penicillins Allergy Anaphylaxis Verified 09/04/23 16:28 aspirin AdvReac Swelling Verified 09/04/23 16:28 red dye AdvReac Itching Verified 09/04/23 16:28 Sulfa (Sulfonamide AdvReac Nausea & Verified 09/04/23 16:28 Antibiotics) Vomiting Review of Systems ROS Statement: Those systems with pertinent positive or pertinent negative responses have been documented in the HPI. ROS Other: All systems not noted in ROS Statement are negative. Past Medical History Past Medical History: Hyperlipidemia, Hypertension, Memory Impairment, Thyroid Disorder Additional Past Medical History / Comment(s): SINUS. OSTEOPOROSIS History of Any Multi-Drug Resistant Organisms: None Reported Past Surgical History: Appendectomy, Cholecystectomy, Joint Replacement Additional Past Surgical History / Comment(s): TOTAL HIP AND KNEE, NOT SURE WHAT SIDES Past Anesthesia/Blood Transfusion Reactions: No Reported Reaction Past Psychological History: No Psychological Hx Reported Smoking Status: Unknown if ever smoked Past Alcohol Use History: None Reported Past Drug Use History: None Reported - Past Family History Mother Family Medical History: Cancer General Exam General appearance: alert, in no apparent distress Head exam: Present: atraumatic, normocephalic Eye exam: Present: normal appearance, PERRL ENT exam: Present: normal exam Neck exam: Present: normal inspection, other ([place] collar). Absent: tenderness, meningismus Respiratory exam: Present: normal lung sounds bilaterally, chest wall tenderness. Absent: respiratory distress, wheezes Cardiovascular Exam: Present: regular rate, normal rhythm GI/Abdominal exam: Present: soft. Absent: distended, tenderness, guarding Extremities exam: Present: normal inspection, normal capillary refill. Absent: pedal edema, calf tenderness Neurological exam: Present: alert, oriented X3, CN II-XII intact. Absent: motor sensory deficit Psychiatric exam: Present: normal affect, normal mood Skin exam: Present: warm, dry, intact. Absent: cyanosis, diaphoretic Course Vital Signs 09/04/23 09/04/23 09/04/23 15:26 15:30 16:00 Temperature 98.4 F Pulse Rate 73 75 72 Respiratory 16 18 20 Rate Blood Pressure 137/69 137/69 131/79 O2 Sat by Pulse 97 97 96 Oximetry 09/04/23 09/04/23 09/04/23 16:30 17:00 17:30 Temperature Pulse Rate 71 69 73 Respiratory 18 18 18 Rate Blood Pressure 153/69 131/79 140/71 O2 Sat by Pulse 97 97 98 Oximetry 09/04/23 09/04/23 09/04/23 18:00 18:30 19:04 Temperature Pulse Rate 71 73 77 Respiratory 18 18 18 Rate Blood Pressure 167/79 136/80 153/73 O2 Sat by Pulse 98 97 95 Oximetry Medical Decision Making - Medical Decision Making Was pt. sent in by a medical professional or institution (MAGGIE Hubbard, LODGING FACILITIES MANAGER, urgent care, hospital, or [facility]...) When possible be specific @ -No Did you speak to anyone other than the patient for history (EMS, parent, family, police, friend...)? What history was obtained from this source @ -No Did you review nursing and triage notes (agree or disagree)? Why? @ -I reviewed and agree with nursing and triage notes Were old charts reviewed (outside hosp., previous admission, EMS record, old EKG, old radiological studies, urgent care reports/EKG's, [facility] records)? Report findings @ -No old charts were reviewed Differential Diagnosis (chest pain, altered mental status, abdominal pain women, abdominal pain men, vaginal bleeding, weakness, fever, dyspnea, syncope, headache, dizziness, GI bleed, back pain, seizure, CVA, palpatations, mental health, musculoskeletal)? @ -Differential Chest Pain: Stable Angina, Unstable Angina, STEMI, NSTEMI Aortic Dissection, Pneumothorax, Musculoskeletal, Esophageal Spasm GERD, Cholecystitis, Pancreatitis, Zoster, this is not meant to be an all-inclusive list. EKG interpreted by me (3pts min.). @ Sinus rhythm rate of 73, MN interval 188, QRS duration 75, QTc [address] segment elevation. X-rays interpreted by me (1pt min.). @Chest x-ray negative for acute cardiopulmonary findings CT interpreted by me (1pt min.). @ -None done U/S interpreted by me (1pt. min.). @ -None done What testing was considered but not performed or refused? (CT, X-rays, U/S, labs)? Why? @ -None What meds were considered but not given or refused? Why? @ -None Did you discuss the management of the patient with other professionals (professionals i.e. , PA, LODGING FACILITIES MANAGER, lab, RT, psych nurse, social service liaison, daily sales audit clerk, teacher, police commanding officer, spring encaser)? Give summary @ -[Dr. Serrato Was smoking cessation discussed for >3mins.? @ -No Was critical care preformed (if so, how long)? @ -No Were there social determinants of health that impacted care today? How? (Homelessness, low income, unemployed, alcoholism, drug addiction, transportation, low edu. Level, literacy, decrease access to med. care, halfway, rehab)? @ -No Was there de-escalation of care discussed even if they declined (Discuss DNR or withdrawal of care, Hospice)? DNR status @ -No What co-morbidities impacted this encounter? (DM, HTN, Smoking, COPD, CAD, Cancer, CVA, ARF, Chemo, Hep., AIDS, mental health diagnosis, sleep apnea, morbid obesity)? @ -None Was patient admitted / discharged? Hospital course, mention meds given and route, prescriptions, significant lab abnormalities, going to OR and other pertinent info. @ -78-year-old female with chest pain. Pain likely muscular skeletal in nature. Patient has a EKG showing sinus rhythm without ST segment changes. Chest x-ray is clear. She will be admitted for serial cardiac enzymes, telemetry, cardiology consultation to rule out an acute cardiac event. Undiagnosed new problem with uncertain prognosis? @ -No Drug Therapy requiring intensive monitoring for toxicity (Heparin, Nitro, Insulin, Cardizem)? @ -No Were any procedures done? @ -No Diagnosis/symptom? @ -[Chest pain rule out Acute, or Chronic, or Acute on Chronic? @ -[Acute Uncomplicated (without systemic symptoms) or Complicated (systemic symptoms)? @ -default Side effects of treatment? @ -No Exacerbation, Progression, or Severe Exacerbation? @ -No Poses a threat to life or bodily function? How? (Chest pain, [place], [place], pneumonia, PE, COPD, DKA, ARF, appy, cholecystitis, CVA, Diverticulitis, Homicidal, Suicidal, threat to staff... and all critical care pts) @ -yes, chest pain - Lab Data Result diagrams: 09/04/23 17:16 09/04/23 17:16 Lab Results 09/04/23 09/04/23 09/04/23 Range/Units 17:16 17:16 17:16 WBC 6.0 (3.8-10.6) k/uL RBC 3.59 L (3.80-5.40) m/uL Hgb 11.2 L (11.4-16.0) gm/dL Hct 33.3 L (34.0-46.0) % MCV 92.9 (80.0-100.0) fL MCH 31.1 (25.0-35.0) pg MCHC 33.5 (31.0-37.0) g/dL RDW 13.1 (11.5-15.5) % Plt Count 109 L (150-450) k/uL MPV 8.0 Neutrophils % 67 % Lymphocytes % 22 % Monocytes % 6 % Eosinophils % 2 % Basophils % 0 % Neutrophils # 4.0 (1.3-7.7) k/uL Lymphocytes # 1.3 (1.0-4.8) k/uL Monocytes # 0.4 (0-1.0) k/uL Eosinophils # 0.1 (0-0.7) k/uL Basophils # 0.0 (0-0.2) k/uL PT (10.0-12.5) sec INR (<1.2) APTT (22.0-30.0) sec Sodium 137 (137-145) mmol/L Potassium 4.2 (3.5-5.1) mmol/L Chloride 103 (98-107) mmol/L Carbon Dioxide 26 (22-30) mmol/L Anion Gap 8 mmol/L BUN 24 H (7-17) mg/dL Creatinine 1.08 H (0.52-1.04) mg/dL Est GFR (CKD-EPI)AfAm 57 (>60 ml/min/1.73 sqM) Est GFR (CKD-EPI)NonAf 49 (>60 ml/min/1.73 sqM) Glucose 96 (74-99) mg/dL Calcium 8.8 (8.4-10.2) mg/dL Magnesium 1.7 (1.6-2.3) mg/dL Total Bilirubin 0.5 (0.2-1.3) mg/dL AST 36 (14-36) U/L ALT 27 (4-34) U/L Alkaline Phosphatase 101 (38-126) U/L Troponin I <0.012 (0.000-0.034) ng/mL NT-Pro-B Natriuret Pep 1280 pg/mL Total Protein 5.7 L (6.3-8.2) g/dL Albumin 3.3 L (3.5-5.0) g/dL Lipase 69 (23-300) U/L 09/04/23 Range/Units 19:03 WBC (3.8-10.6) k/uL RBC (3.80-5.40) m/uL Hgb (11.4-16.0) gm/dL Hct (34.0-46.0) % MCV (80.0-100.0) fL MCH (25.0-35.0) pg MCHC (31.0-37.0) g/dL RDW (11.5-15.5) % Plt Count (150-450) k/uL MPV Neutrophils % % Lymphocytes % % Monocytes % % Eosinophils % % Basophils % % Neutrophils # (1.3-7.7) k/uL Lymphocytes # (1.0-4.8) k/uL Monocytes # (0-1.0) k/uL Eosinophils # (0-0.7) k/uL Basophils # (0-0.2) k/uL PT 10.7 (10.0-12.5) sec INR 1.0 (<1.2) APTT 20.8 L (22.0-30.0) sec Sodium (137-145) mmol/L Potassium (3.5-5.1) mmol/L Chloride (98-107) mmol/L Carbon Dioxide (22-30) mmol/L Anion Gap mmol/L BUN (7-17) mg/dL Creatinine (0.52-1.04) mg/dL Est GFR (CKD-EPI)AfAm (>60 ml/min/1.73 sqM) Est GFR (CKD-EPI)NonAf (>60 ml/min/1.73 sqM) Glucose (74-99) mg/dL Calcium (8.4-10.2) mg/dL Magnesium (1.6-2.3) mg/dL Total Bilirubin (0.2-1.3) mg/dL AST (14-36) U/L ALT (4-34) U/L Alkaline Phosphatase (38-126) U/L Troponin I (0.000-0.034) ng/mL NT-Pro-B Natriuret Pep pg/mL Total Protein (6.3-8.2) g/dL Albumin (3.5-5.0) g/dL Lipase (23-300) U/L Disposition Clinical Impression: Chest pain Disposition: ADMITTED IP TO THIS HOSP Condition: Stable Is patient prescribed a controlled substance at d/c from ED?: No Referrals: Pradeep Serrato MD [Primary Care Provider] - 1-2 days Time of Disposition: 19:44
--- NOTE | 2023-09-04 16:30 | XR ---
EXAMINATION TYPE: XR chest 2V DATE OF EXAM: 09/04/2023 4:20 PM COMPARISON: Chest radiographs from 11/25/2019, CTA chest 11/25/2019 TECHNIQUE: XR chest 2V Frontal and lateral views of the chest. CLINICAL INDICATION:Female, 78 years old with history of Chest Pain; FINDINGS: Lungs/Pleura: There is no evidence of pleural effusion, focal consolidation, or pneumothorax. Chroni c senescent parenchymal change. Pulmonary vascularity: Unremarkable. Heart/mediastinum: Cardiomediastinal silhouette is enlarged and stable. Atherosclerotic calcificatio ns are seen in the aorta. Musculoskeletal: No acute osseous pathology. IMPRESSION: No acute cardiopulmonary disease/process.
[2023-09-04 17:51] LABS: Basophils % (A) 0 %; Eosinophils # (A) 0.1 k/uL (0-0.7); Eosinophils % (A) 2 %; HCT 33.3 % (34.0-46.0); HGB 11.2 gm/dL (11.4-16.0); Lymphocytes # (A) 1.3 k/uL (1.0-4.8); Lymphocytes % (A) 22 %; MCH 31.1 pg (25.0-35.0); MCHC 33.5 g/dL (31.0-37.0); MCV 92.9 fL (80.0-100.0); Monocytes # (A) 0.4 k/uL (0-1.0); Monocytes % (A) 6 %; Neutrophils % (A) 67 %; Platelet Count 109 k/uL (150-450); RBC 3.59 m/uL (3.80-5.40); RDW 13.1 % (11.5-15.5)
[2023-09-04 18:01] LABS: ALT 27 U/L (4-34); AST 36 U/L (14-36); African American GFR (CKD) 57 (>60 ml/min/1.73 sqM); Albumin 3.3 g/dL (3.5-5.0); Alkaline Phosphatase 101 U/L (38-126); Anion Gap 8 mmol/L; Blood Urea Nitrogen 24 mg/dL (7-17); Calcium 8.8 mg/dL (8.4-10.2); Carbon Dioxide 26 mmol/L (22-30); Chloride 103 mmol/L (98-107); Glucose 96 mg/dL (74-99); Lipase 69 U/L (23-300); Magnesium 1.7 mg/dL (1.6-2.3); Non-African American GFR(CKD) 49 (>60 ml/min/1.73 sqM); Potassium 4.2 mmol/L (3.5-5.1); Sodium 137 mmol/L (137-145); Total Bilirubin 0.5 mg/dL (0.2-1.3); Total Protein 5.7 g/dL (6.3-8.2)
[2023-09-04 18:09] LABS: NT-Pro-B-Type Natriuretic Pept 1280 pg/mL
[2023-09-04] MEDS ORDERED: MORPHINE SULFATE 4 MG/ML SYRINGE IVP STA (18:51)
[2023-09-04 19:27] LABS: Prothrombin Time 10.7 sec (10.0-12.5)
[2023-09-04 19:29] LABS: Partial Thromboplastin Time 20.8 sec (22.0-30.0)
[2023-09-04] MEDS ORDERED: NALOXONE 0.4 MG/ML 1 ML VIAL IV PRN (19:41)
[2023-09-05] MEDS: MORPHINE SULFATE 4 MG/ML SYRINGE IV PRN ×3 (08:07→18:53)
[2023-09-05] MEDS: LOSARTAN 25 MG TAB PO SCH (08:07)
--- NOTE | 2023-09-05 09:35 | P.CRDCN ---
History of Present Illness History of present illness: HISTORY OF PRESENT ILLNESS: This is a 78-year-old female with a past medical history significant for hypertension, hyperlipidemia, hypothyroidism, and recent fall with cervical injury. Patient does not follow with a explosives operator. We have been asked to see the patient in consultation for chest pain. Patient examined at the bedside. Patient states approximately a week ago she had a fall and suffered injury to her neck (She states she was hospitalized at [facility]). She is currently in an [place] collar. She denied having any syncope at that time. The patient reports yesterday she was having pain throughout her neck. She also reports pain in her chest. She states the pain is worse with deep inspiration. The pain is also worse with chest wall palpation. She denies any shortness of breath. Denies any dizziness or lightheadedness. She is a nonsmoker. Vital signs are stable. * EKG reveals sinus mechanism with no signs of acute ischemia * Chest xray negative for acute process * Laboratory data: Troponin negative 3 * Current home cardiac medications include losartan 25 mg daily and atorvastatin 40 mg at night * No previous echocardiogram or cardiac catheterization available for review in EMR REVIEW OF SYSTEMS: At the time of my exam: CONSTITUTIONAL: Denies fever or chills. HEENT: Denies blurred vision, vision changes, or eye pain. Denies hemoptysis CARDIOVASCULAR: Denies chest pain. Denies orthopnea. Denies PND. Denies palpitations RESPIRATORY: Denies shortness of breath. GASTROINTESTINAL: Denies abdominal pain. Denies nausea or vomiting. HEMATOLOGIC: Denies bleeding disorders. GENITOURINARY: Denies any blood in urine. SKIN: Denies pruitis. Denies rash. PHYSICAL EXAM: VITAL SIGNS: Reviewed. GENERAL: Well-developed in no acute distress. HEENT: Head is normocephalic. Pupils are equal, round. Sclerae anicteric. Mucous membranes of the mouth are moist. Patient an [place] collar. LUNGS: Respirations even and unlabored. Lungs essentially clear to auscultation bilaterally. HEART: Regular rate and rhythm. S1 and S2 heard. Systolic murmur noted. ABDOMEN: Soft. Nondistended. Nontender. EXTREMITIES: Normal range of motion. No clubbing or cyanosis. Peripheral pulses intact. No lower extremity edema NEUROLOGIC: Awake and alert. Oriented x 3. ASSESSMENT: Chest pain, noncardiac, troponin negative 3 Recent fall with cervical injury, currently in [place] collar Hypertension Hyperlipidemia Hypothyroidism PLAN: An acute coronary event has been ruled out Resume home cardiac medications Obtain 2-D echo to assess cardiac structure and function Patient is currently stable from a cardiac perspective Further recommendations pending patient's course Nurse practitioner note has been reviewed by physician. Signing provider agrees with the documented findings, assessment, and plan of care. Past Medical History Past Medical History: Hyperlipidemia, Hypertension, Memory Impairment, Thyroid Disorder Additional Past Medical History / Comment(s): SINUS. OSTEOPOROSIS History of Any Multi-Drug Resistant Organisms: None Reported Past Surgical History: Appendectomy, Cholecystectomy, Joint Replacement Additional Past Surgical History / Comment(s): TOTAL HIP AND KNEE, NOT SURE WHAT SIDES Past Anesthesia/Blood Transfusion Reactions: No Reported Reaction Past Psychological History: No Psychological Hx Reported Smoking Status: Unknown if ever smoked Past Alcohol Use History: None Reported Past Drug Use History: None Reported - Past Family History Mother Family Medical History: Cancer Medications and Allergies Home Medications Medication Instructions Recorded Confirmed Type Colchicine [Colcrys] 0.6 mg PO DAILY@89908/02/16 09/04/23 History Levothyroxine Sodium [Synthroid] 25 mcg PO DAILY@0600 08/02/16 09/04/23 History Omeprazole [PriLOSEC] 20 mg PO DAILY@89908/02/16 09/04/23 History Potassium Chloride [Klor-Con M10] 30 meq PO DAILY@89908/02/16 09/04/23 History rOPINIRole HCL [Requip] 0.25 mg PO HS@209908/02/16 09/04/23 History Acetaminophen [Tylenol] 650 mg PO Q6H PRN 09/04/23 09/04/23 History Alendronate Sodium [Fosamax] 70 mg PO WEATHERS@89909/04/23 09/04/23 History Atorvastatin Calcium [Lipitor] 40 mg PO HS@209909/04/23 09/04/23 History Diclofenac Sodium [Voltaren] 25 mg PO BID@899,209909/04/23 09/04/23 History FLUoxetine HCL 40 mg PO DAILY@89909/04/23 09/04/23 History Famotidine [Pepcid] 20 mg PO DAILY@89909/04/23 09/04/23 History Fluticasone Nasal [place] [Flonase 1 spray EA NOSTRIL DAILY@89909/04/23 09/04/23 History Nasal [place]] Losartan [Cozaar] 25 mg PO DAILY@89909/04/23 09/04/23 History Montelukast [Singulair] 10 mg PO DAILY@0909/04/23 09/04/23 History oxyCODONE HCL [OxyIR] 5 mg PO Q6H PRN 09/04/23 09/04/23 History traZODone HCL [Desyrel] 100 mg PO HS@2100 09/04/23 09/04/23 History Allergies Allergy/AdvReac Type Severity Reaction Status Date / Time Penicillins Allergy Anaphylaxis Verified 09/04/23 16:28 aspirin AdvReac Swelling Verified 09/04/23 16:28 red dye AdvReac Itching Verified 09/04/23 16:28 Sulfa (Sulfonamide AdvReac Nausea & Verified 09/04/23 16:28 Antibiotics) Vomiting Physical Exam Vitals: Vital Signs Temp Pulse Pulse Resp BP BP Pulse Ox 09/05/23 06:41 97.9 F 62 14 95/44 96 09/05/23 02:00 97.8 F 66 14 101/54 99 09/04/23 21:07 98.2 F 79 22 135/64 96 09/04/23 20:30 82 22 188/82 95 09/04/23 20:00 97.4 F L 79 80 16 165/90 135/64 98 09/04/23 19:30 80 20 153/73 96 09/04/23 19:04 77 18 153/73 95 09/04/23 19:00 75 22 151/71 95 09/04/23 18:30 73 18 136/80 97 09/04/23 18:00 71 18 167/79 98 09/04/23 17:30 73 18 140/71 98 09/04/23 17:00 69 18 131/79 97 09/04/23 16:30 71 18 153/69 97 09/04/23 16:00 72 20 131/79 96 09/04/23 15:30 75 18 137/69 97 09/04/23 15:26 98.4 F 73 16 137/69 97 Intake and Output 09/04/23 09/05/23 09/05/23 22:59 06:59 14:59 Intake Total 250 Output Total 300 Balance -50 Intake: Oral 250 Output: Urine 300 Other: Voiding Method Bedpan Incontinent External Catheter # Voids 1 1 Weight 68 kg Results 09/04/23 17:16 09/04/23 17:16 Cardiac Enzymes 09/04/23 09/04/23 09/04/23 Range/Units 17:16 17:16 20:53 AST 36 (14-36) U/L Troponin I <0.012 <0.012 (0.000-0.034) ng/mL 09/05/23 Range/Units 00:46 AST (14-36) U/L Troponin I <0.012 (0.000-0.034) ng/mL Coagulation 09/04/23 Range/Units 19:03 PT 10.7 (10.0-12.5) sec APTT 20.8 L (22.0-30.0) sec CBC 09/04/23 Range/Units 17:16 WBC 6.0 (3.8-10.6) k/uL RBC 3.59 L (3.80-5.40) m/uL Hgb 11.2 L (11.4-16.0) gm/dL Hct 33.3 L (34.0-46.0) % Plt Count 109 L (150-450) k/uL Comprehensive Metabolic Panel 09/04/23 Range/Units 17:16 Sodium 137 (137-145) mmol/L Potassium 4.2 (3.5-5.1) mmol/L Chloride 103 (98-107) mmol/L Carbon Dioxide 26 (22-30) mmol/L BUN 24 H (7-17) mg/dL Creatinine 1.08 H (0.52-1.04) mg/dL Glucose 96 (74-99) mg/dL Calcium 8.8 (8.4-10.2) mg/dL AST 36 (14-36) U/L ALT 27 (4-34) U/L Alkaline Phosphatase 101 (38-126) U/L Total Protein 5.7 L (6.3-8.2) g/dL Albumin 3.3 L (3.5-5.0) g/dL Current Medications Generic Name Dose Route Start Last Admin Trade Name Freq PRN Reason Stop Dose Admin Acetaminophen 650 mg 09/04/23 19:41 Acetaminophen Tab 325 Mg Tab PO Q6HR PRN Mild Pain or Fever > 100.5 Morphine Sulfate 4 mg 09/04/23 19:41 Morphine Sulfate 4 Mg/Ml Syringe IV Q4HR PRN Severe Pain (Scale 7 to 10) Naloxone HCl 0.2 mg 09/04/23 19:41 Naloxone 0.4 Mg/Ml 1 Ml Vial IV Q2M PRN Opioid Reversal Intake and Output 09/04/23 09/05/23 09/05/23 22:59 06:59 14:59 Intake Total 250 Output Total 300 Balance -50 Intake: Oral 250 Output: Urine 300 Other: Voiding Method Bedpan Incontinent External Catheter # Voids 1 1 Weight 68 kg 09/04/23 17:16 09/04/23 17:16
[2023-09-05] MEDS ORDERED: ACETAMINOPHEN TAB 325 MG TAB PO PRN (14:42)
[2023-09-05] MEDS: ACETAMINOPHEN TAB 325 MG TAB PO PRN (15:07)
[2023-09-05] MEDS ORDERED: ZINC OXIDE PASTE (Z-GUARD) 1 APPLIC APPLIC TOPICAL PRN (15:52)
[2023-09-05] MEDS: traMADol 50 MG TAB PO SCH (17:16)
--- NOTE | 2023-09-05 17:34 | CA ---
Transthoracic Echo Report Name: Lc Carranza Age: 78 Gender: F : 1945 Exam Date: 09/05/2023 16:25 Exam Location: [place] [facility] Ht (in): 60 Wt (lb): 149 Ordering Physician: Hortensia Wilson Attending/Referring Phys: [id number], Steve Ice Cutter Ida Anderson, MARLINE Procedure CPT: Indications: LV function, CP Cardiac Hx: Technical Quality: Fair Contrast 1: Total Dose (mL): Contrast 2: Total Dose (mL): MEASUREMENTS (Male / Female) Normal Values 2D ECHO LV Diastolic Diameter PLAX 4.3 cm 4.2 - 5.9 / 3.9 - 5.3 cm LV Systolic Diameter PLAX 2.3 cm IVS Diastolic Thickness 0.8 cm 0.6 - 1.0 / 0.6 - 0.9 cm LVPW Diastolic Thickness 0.9 cm 0.6 - 1.0 / 0.6 - 0.9 cm LV Relative Wall Thickness 0.4 LA Systolic Diameter LX 3.5 cm 3.0 - 4.0 / 2.7 - 3.8 cm LA Volume 37.7 cm??? 18 - 58 / 22 - 52 cm??? LA Volume Index 22.0 cm???/m??? 16 - 28 cm???/m??? M-MODE Aortic Root Diameter MM 3.2 cm MV E Point Septal Separation 0.4 cm AV Cusp Separation MM 1.7 cm DOPPLER AV Peak Velocity 141.3 cm/s AV Peak Gradient 8.0 mmHg MV Area PHT 3.4 cm??? Mitral E Point Velocity 82.0 cm/s Mitral A Point Velocity 63.7 cm/s Mitral E to A Ratio 1.3 MV Deceleration Time 224.9 ms MV E' Velocity 7.8 cm/s Mitral E to MV E' Ratio 10.6 TR Peak Velocity 219.8 cm/s TR Peak Gradient 19.3 mmHg Right Ventricular Systolic Press 24.3 mmHg FINDINGS Left Ventricle Left ventricular ejection fraction is estimated at 55-60 %. Left ventricular cavity size normal. Left ventricular wall thickness normal. Right Ventricle Normal right ventricular size and function. Right ventricular systolic pressure within normal limits. Right Atrium Normal right atrial size. Left Atrium Normal left atrial size. Mitral Valve Structurally normal mitral valve. No mitral stenosis, or prolapse.mild mitral regurgitation. Aortic Valve Trileaflet aortic valve. Aortic valve sclerosis. Tricuspid Valve Structurally normal tricuspid valve. mild tricuspid regurgitation. Pulmonic Valve No pulmonic regurgitation.pulmonic valve not well visualized. Pericardium No pericardial effusion. Aorta Normal size aortic root and proximal ascending aorta. CONCLUSIONS 1. Normal left ventricle size and systolic function 2. Mild mitral and tricuspid regurgitation with no evidence of pulmonary hypertension Previewed by: Dr. Teri Foy MD (Electronically Signed) Final Date: 05 September 2023 17:34
[2023-09-05] MEDS ORDERED: ATORVASTATIN 40 MG TAB PO SCH (21:00)
[2023-09-05] MEDS: traZODone HCL 50 MG TAB PO SCH (22:03)
[2023-09-05] MEDS: ETODOLAC 200 MG CAPSULE PO SCH (22:03)
[2023-09-05] MEDS: DOCUSATE 100 MG CAP PO SCH (22:04)
--- NOTE | 2023-09-05 22:07 | HP ---
HISTORY AND PHYSICAL CHIEF COMPLAINT: Chest pain. HISTORY OF PRESENT ILLNESS: This is another admission for this 78-year-old white female. She recently was treated for a C-spine fracture of C2 and is rehabilitating in a [facility]. She apparently started to complain of chest pain and was sent into the hospital. REVIEW OF SYSTEMS: She denies any diaphoresis, shortness of breath, syncope, orthopnea, etc. Past medical history, family history, and personal and social histories are unchanged. PHYSICAL EXAMINATION: HEAD, EARS, EYES, NOSE, MOUTH, AND THROAT: Normal. CHEST: Clear. CARDIAC: Normal. ABDOMEN: Soft and nontender. EXTREMITIES: Normal. NECK: Her neck was in an immobilization collar. NEUROLOGIC: She is intact. DIAGNOSES: She is admitted to the hospital with diagnoses: 1. Chest pain. 2. Cervical spine fracture. PLAN: 1. Bedrest. 2. IV fluids. 3. Serial EKGs and enzymes. MMODL / IJN: [id number] /
--- NOTE | 2023-09-05 22:28 | PN ---
PROGRESS NOTE CHIEF COMPLAINT: Chest pain. HISTORY OF PRESENT ILLNESS: This lady is doing well. She is not having any further chest pain. Enzymes have been normal. PHYSICAL EXAMINATION: CHEST: Clear. CARDIAC: Normal. ABDOMEN: Soft, nontender. IMPRESSION: Chest pain. PLAN: 1. Increase activity. 2. Occupational therapy. MMODL / IJN: [id number] /
[2023-09-06] MEDS ORDERED: SODIUM CHLORIDE 0.9% 500 ML 500 ML IV ONE (02:42)
[2023-09-06] MEDS: ACETAMINOPHEN TAB 325 MG TAB PO PRN (02:49)
[2023-09-06] MEDS: FLUTICASONE 50MCG/SPRAY NASAL 16GM EA NOSTRIL SCH (02:50)
[2023-09-06] MEDS: SODIUM CHLORIDE 0.9% 1,000 ML IV SCH ×3 (03:29→20:48)
[2023-09-06] MEDS: traMADol 50 MG TAB PO SCH ×4 (04:12→21:38)
[2023-09-06] MEDS: LEVOTHYROXINE 25 MCG TAB PO SCH (06:34)
[2023-09-06] MEDS ORDERED: COLCHICINE 0.6 MG EACH PO SCH (09:00)
--- NOTE | 2023-09-06 09:37 | P.PN ---
Subjective HISTORY OF PRESENT ILLNESS: This is a 78-year-old female with a past medical history significant for hypertension, hyperlipidemia, hypothyroidism, and recent fall with cervical injury. Patient does not follow with a director surgical. We have been asked to see the patient in consultation for chest pain. Patient examined at the bedside. Patient states approximately a week ago she had a fall and suffered injury to her neck (She states she was hospitalized at [facility]). She is currently in an [place] collar. She denied having any syncope at that time. The patient reports yesterday she was having pain throughout her neck. She also reports pain in her chest. She states the pain is worse with deep inspiration. The pain is also worse with chest wall palpation. She denies any shortness of breath. Denies any dizziness or lightheadedness. She is a nonsmoker. Vital signs are stable. * EKG reveals sinus mechanism with no signs of acute ischemia * Chest xray negative for acute process * Laboratory data: Troponin negative 3 * Current home cardiac medications include losartan 25 mg daily and atorvastatin 40 mg at night * No previous echocardiogram or cardiac catheterization available for review in EMR 09/06/2023 Patient examined this morning at the bedside. Patient currently denies shortness of breath. She continues to report chest pain that is worse with deep inspiration and also movement. She is complaining of nasal congestion and a headache this morning. Vital signs are stable. Echocardiogram completed revealing ejection fraction 55-60% with no wall motion abnormalities noted. PHYSICAL EXAM: VITAL SIGNS: Reviewed. GENERAL: Well-developed in no acute distress. HEENT: Head is normocephalic. Pupils are equal, round. Sclerae anicteric. Mucous membranes of the mouth are moist. Patient an [place] collar. LUNGS: Respirations even and unlabored. Lungs essentially clear to auscultation bilaterally. HEART: Regular rate and rhythm. S1 and S2 heard. Systolic murmur noted. ABDOMEN: Soft. Nondistended. Nontender. EXTREMITIES: Normal range of motion. No clubbing or cyanosis. Peripheral pulses intact. No lower extremity edema NEUROLOGIC: Awake and alert. Oriented x 3. ASSESSMENT: Chest pain, noncardiac, troponin negative 3 Recent fall with cervical injury, currently in [place] collar Hypertension Hyperlipidemia Hypothyroidism PLAN: Continue current cardiac medications Patient is currently stable from a cardiac standpoint with no further inpatient recommendations We will sign off. Please reconsult if needed. Nurse practitioner note has been reviewed by physician. Signing provider agrees with the documented findings, assessment, and plan of care. Objective - Vital Signs Vital signs: Vital Signs Temp 98.1 F 09/06/23 07:10 Pulse 62 09/06/23 07:10 Resp 16 09/06/23 07:10 BP 103/51 09/06/23 07:10 Pulse Ox 95 09/06/23 07:10 FiO2 Intake & Output 09/05/23 09/06/23 09/06/23 18:59 06:59 18:59 Intake Total 180 Balance 180 Weight 68 kg Intake: Oral 180 Other: Voiding Method Bedpan Bedside Commode Bedside Commode Incontinent External Catheter # Voids 1 1 # Bowel Movements 1 - Labs CBC & Chem 7: 09/04/23 17:16 09/04/23 17:16
[2023-09-06] MEDS: DOCUSATE 100 MG CAP PO SCH ×2 (09:49→20:47)
[2023-09-06] MEDS: ETODOLAC 200 MG CAPSULE PO SCH (09:50)
[2023-09-06] MEDS: MONTELUKAST 10 MG TAB PO SCH (09:50)
[2023-09-06] MEDS: POTASSIUM CHLORIDE ER 10 MEQ TAB.ER.PRT PO SCH (09:50)
[2023-09-06] MEDS: PANTOPRAZOLE 40 MG TABLET PO SCH (09:50)
[2023-09-06] MEDS: FLUoxetine HCL 20 MG CAP PO SCH (09:50)
[2023-09-06] MEDS: FAMOTIDINE 20 MG TAB PO SCH (09:50)
[2023-09-06] MEDS: LOSARTAN 25 MG TAB PO SCH ×2 (09:50→15:30)
[2023-09-06] MEDS ORDERED: ONDANSETRON 4 MG/2 ML VIAL IVP PRN (16:14)
[2023-09-06] MEDS ORDERED: MAGNESIUM HYDROXIDE 2,400 MG/30 ML CUP PO PRN (17:04)
[2023-09-06 17:31] LABS: Basophils % (A) 0 %; Eosinophils # (A) 0.1 k/uL (0-0.7); Eosinophils % (A) 1 %; HCT 32.1 % (34.0-46.0); HGB 10.5 gm/dL (11.4-16.0); Lymphocytes % (A) 7 %; MCH 30.6 pg (25.0-35.0); MCHC 32.8 g/dL (31.0-37.0); MCV 93.2 fL (80.0-100.0); Mean Platelet Volume 8.3; Monocytes # (A) 0.7 k/uL (0-1.0); Monocytes % (A) 5 %; Neutrophils # (A) 11.5 k/uL (1.3-7.7); Neutrophils % (A) 86 %; Platelet Count 101 k/uL (150-450); RBC 3.45 m/uL (3.80-5.40); WBC 13.5 k/uL (3.8-10.6)
--- NOTE | 2023-09-06 17:46 | XR ---
EXAMINATION TYPE: XR chest 1V portable DATE OF EXAM: 09/06/2023 5:37 PM CLINICAL INDICATION:Female, 78 years old with history of L chest pain; [facility] COMPARISON: Chest radiographs from 09/04/2023. TECHNIQUE: XR chest 1V portable Frontal view of the chest. FINDINGS: Lungs/Pleura: There is no evidence of pleural effusion, focal consolidation, or pneumothorax. Pulmonary vascularity: Unremarkable. Heart/mediastinum: Cardiomediastinal silhouette is unremarkable. Musculoskeletal: No acute osseous pathology. Other findings: None IMPRESSION: No acute cardiopulmonary disease/process.
[2023-09-06 17:49] LABS: ALT 405 U/L (4-34); AST 272 U/L (14-36); African American GFR (CKD) 59 (>60 ml/min/1.73 sqM); Albumin 2.8 g/dL (3.5-5.0); Albumin/Globulin Ratio 1.2; Alkaline Phosphatase 272 U/L (38-126); Anion Gap 6 mmol/L; Blood Urea Nitrogen 19 mg/dL (7-17); Calcium 7.8 mg/dL (8.4-10.2); Carbon Dioxide 22 mmol/L (22-30); Chloride 106 mmol/L (98-107); Globulin 2.3 g/dL; Glucose 107 mg/dL (74-99); Non-African American GFR(CKD) 51 (>60 ml/min/1.73 sqM); Potassium 4.1 mmol/L (3.5-5.1); Sodium 134 mmol/L (137-145); Total Bilirubin 0.8 mg/dL (0.2-1.3); Total Protein 5.1 g/dL (6.3-8.2)
[2023-09-06] MEDS: traZODone HCL 50 MG TAB PO SCH (20:47)
[2023-09-07] MEDS: SODIUM CHLORIDE 0.9% 1,000 ML IV SCH ×4 (02:59→17:39)
[2023-09-07] MEDS: LEVOTHYROXINE 25 MCG TAB PO SCH (06:00)
[2023-09-07] MEDS: FLUTICASONE 50MCG/SPRAY NASAL 16GM EA NOSTRIL SCH (08:43)
[2023-09-07] MEDS: FAMOTIDINE 20 MG TAB PO SCH (08:44)
[2023-09-07] MEDS: FLUoxetine HCL 20 MG CAP PO SCH (08:44)
[2023-09-07] MEDS: MONTELUKAST 10 MG TAB PO SCH (08:44)
[2023-09-07] MEDS: PANTOPRAZOLE 40 MG TABLET PO SCH (08:44)
[2023-09-07] MEDS: POTASSIUM CHLORIDE ER 10 MEQ TAB.ER.PRT PO SCH (08:44)
[2023-09-07] MEDS: DOCUSATE 100 MG CAP PO SCH ×2 (08:44→20:32)
[2023-09-07] MEDS: traMADol 50 MG TAB PO SCH ×3 (08:51→20:32)
[2023-09-07] MEDS: IOPAMIDOL CONTRAST (ORAL USE) VIAL PO PRN ×2 (10:30→11:34)
--- NOTE | 2023-09-07 13:31 | CT ---
EXAMINATION TYPE: CT abdomen pelvis w con CT DLP: 570.4 mGycm, Automated exposure control for dose reduction was used. DATE OF EXAM: 09/07/2023 12:55 PM COMPARISON: 11/25/2019 CLINICAL INDICATION:Female, 78 years old with history of abd. pain, elev. LFTs; Elevated LFTs TECHNIQUE: Axial CT of the ;CT abdomen pelvis w con;Sagittal and coronal reformats were created on a separate workstation. Contrast used:100 mL of Isovue 300 with IV Contrast, (none if empty) Oral contrast used: without Oral Contrast (none if empty) FINDINGS: LOWER CHEST: Unremarkable ABDOMEN LIVER: Unremarkable GALLBLADDER AND BILE DUCTS: Gallbladder is surgically absent with mild intrahepatic and extra hepatic biliary dilatation likely physiologic and a postcholecystectomy change. No evidence of choledocholit hiasis. PANCREAS: Unremarkable. SPLEEN: Unremarkable. ADRENAL GLANDS: Unremarkable. KIDNEYS AND URETERS: No evidence of hydronephrosis or renal calculus. The ureters are unremarkable. Simple appearing right renal cyst. PELVIS BLADDER: Unremarkable REPRODUCTIVE: Unremarkable. ABDOMEN & PELVIS STOMACH AND BOWEL: No evidence of bowel obstruction. Wall thickening of the distal third of the trans verse colon extending to the rectum with hyperemia of the mucosa and fat stranding. PERITONEUM/RETROPERITONEUM: No evidence of pneumoperitoneum or free fluid. VASCULATURE: No evidence of aortic aneurysm. MUSCULOSKELETAL: No acute osseous abnormalities, left hip arthroplasty hardware appears intact. LYMPH NODES: No gross evidence for lymphadenopathy. SOFT TISSUE/ABDOMINAL WALL: Unremarkable IMPRESSION: 1. Colitis involving the distal third of the transverse colon extending to the rectum. 2. No evidence for acute process involving the liver.
[2023-09-07 17:50] LABS: Appearance,Urine Cloudy (Clear); Bilirubin,Urine Negative (Negative); Blood,Urine Negative (Negative); Color,Urine Colorless; Glucose,Urine (UA) Negative (Negative); Hyaline Casts,Urine 1 /lpf (0-2); Ketones,Urine Negative (Negative); Leukocyte Esterase,Urine Large (Negative); Mucus,Urine Rare /hpf; Nitrite,Urine Negative (Negative); Protein,Urine Negative (Negative); RBC,Urine 4 /hpf (0-5); Squamous Epithelial Cell,Urine 1 /hpf (0-4); Urobilinogen,Urine <2.0 mg/dL (<2.0); WBC,Urine 43 /hpf (0-5)
--- NOTE | 2023-09-07 19:55 | PN ---
PROGRESS NOTE DATE OF SERVICE: 09/06/2023 CHIEF COMPLAINT: Left upper quadrant pain. HISTORY OF PRESENT ILLNESS: This lady is having episodes of nausea and vomiting and complaining of left upper quadrant pain. However, she has apparently had this pain for a long time. She is vomiting. It is interesting to note that when she came in, she had a slightly elevated troponin and BNP. REVIEW OF SYSTEMS: She denies fever and chills, chest pain, flank pain, etc. She has had diarrhea. PHYSICAL EXAMINATION: CHEST: Clear. CARDIAC: Normal and she is slightly tender in the left upper quadrant without any masses or rebound. IMPRESSION: 1. Left upper quadrant pain with nausea and vomiting, etiology unknown. 2. C-spine fracture. 3. Elevated troponin, BNP. 4. Elevated BUN and creatinine (24, 1.08). PLAN: Antiemetics and continue to monitor her pain. MMODL / IJN: [id number] /
[2023-09-07] MEDS: traZODone HCL 50 MG TAB PO SCH (20:32)
--- NOTE | 2023-09-07 20:36 | PN ---
PROGRESS NOTE DATE OF SERVICE: 09/07/2023 CHIEF COMPLAINT: Left upper quadrant pain. HISTORY OF PRESENT ILLNESS: This lady is still complaining of pain in the left upper quadrant. Laboratory studies suggest that there is nothing . Her white count was normal and it is now up to 13,500. Hemoglobin is 10.5. Her liver function studies have also gone up dramatically with an AST of 272 and ALT of 405. Alkaline phosphatase was 272. PHYSICAL EXAMINATION: VITAL SIGNS: Normal. CHEST: Clear. CARDIAC: Normal. ABDOMEN: Soft, nontender. IMPRESSION: Left upper quadrant pain, leukocytosis, and elevated liver function studies. PLAN: CT of the abdomen and pelvis and probably move forward with further liver function studies to rule out active hepatocellular disease or biliary duct disease. MMODL / IJN: [id number] /
[2023-09-08] MEDS: SODIUM CHLORIDE 0.9% 1,000 ML IV SCH ×3 (02:30→17:45)
[2023-09-08] MEDS: LEVOTHYROXINE 25 MCG TAB PO SCH (05:59)
[2023-09-08] MEDS: PANTOPRAZOLE 40 MG TABLET PO SCH (08:38)
[2023-09-08] MEDS: POTASSIUM CHLORIDE ER 10 MEQ TAB.ER.PRT PO SCH (08:38)
[2023-09-08] MEDS: MONTELUKAST 10 MG TAB PO SCH (08:38)
[2023-09-08] MEDS: FLUoxetine HCL 20 MG CAP PO SCH (08:38)
[2023-09-08] MEDS: traMADol 50 MG TAB PO SCH ×3 (08:38→20:04)
[2023-09-08] MEDS: FAMOTIDINE 20 MG TAB PO SCH (08:38)
[2023-09-08] MEDS: DOCUSATE 100 MG CAP PO SCH ×2 (08:39→20:04)
[2023-09-08] MEDS: FLUTICASONE 50MCG/SPRAY NASAL 16GM EA NOSTRIL SCH (08:39)
[2023-09-08 10:15] LABS: Basophils % (A) 0 %; Eosinophils # (A) 0.1 k/uL (0-0.7); Eosinophils % (A) 1 %; Hypochromasia Slight; Lymphocytes # (A) 1.3 k/uL (1.0-4.8); Lymphocytes % (A) 17 %; MCH 31.3 pg (25.0-35.0); MCHC 33.2 g/dL (31.0-37.0); MCV 94.4 fL (80.0-100.0); Mean Platelet Volume 8.2; Monocytes # (A) 0.3 k/uL (0-1.0); Monocytes % (A) 4 %; Neutrophils % (A) 76 %; RBC 3.18 m/uL (3.80-5.40); RDW 13.2 % (11.5-15.5); WBC 7.9 k/uL (3.8-10.6)
[2023-09-08 11:53] LABS: Platelet Count 97 k/uL (150-450)
--- NOTE | 2023-09-08 15:01 | P.CONS ---
History of Present Illness - Reason for Consult Consult date: 09/08/23 Elevated liver enzymes, abdominal pain Requesting physician: Pradeep Serrato - Chief Complaint Chest pain - History of Present Illness This is a 78-year-old pleasant female who presented to the emergency department for left-sided chest pain 4 days ago. She has a past medical history including recent C-spine fracture of C2, hyperlipidemia, hypertension, memory impairment and thyroid disorder. Patient resides in a [facility] states that she started having chest pain and she was brought into the emergency department. She was seen by cardiology, who has deemed that she has a noncardiac chest pain, with troponins negative 3. Patient states she still has a little bit of chest pain but it is improved. She is now also complaining of left lower abdominal pain that is intermittent. Sharp in nature at times. Patient states bowel movements have been normal, when asked if she had diarrhea she states that she has not. However she did have a C. diff study done that was negative. Patient is in a [place] collar. She had a CT of the abdomen and pelvis that reported colitis in the distal third of the transverse colon extending to the rectum. Liver was reported as normal. Patient was admitted with normal LFTs with follow-up lab work showing increase in AST and ALTs in alkaline phosphatase. Gastroenterology was consulted for elevated liver enzymes and abdominal pain. Patient denies any previous knowledge of liver disease. No knowledge of elevated liver enzymes in the past. She does not recall any new medications. She does take atorvastatin at home and has been on that for some time. States that her last bowel movement was yesterday and this morning it was soft and formed. No blood. She does state she has some nausea but no vomiting. She is unsure of last colonoscopy Last available labs were from 09/06/2023. Today's CMP currently pending. On admission total bilirubin 0.5 AST 36 ALTs 27 alkaline phosphatase 101. Comprehensive metabolic panel from 09/06/2023 total bilirubin 0.8 AST 272 ALTs 405 alkaline phosphatase 272 Today's labs WBC 7.9 hemoglobin 10.0 hematocrit 30 platelet count 97,000 Review of Systems REVIEW OF SYSTEMS: CARDIOPULMONARY: Chest pain, somewhat improved. No shortness of breath. Gastrointestinal: Left lower quadrant pain. No nausea or vomiting. No hematemesis, coffee-ground emesis. No rectal bleeding, or melena. GENITOURINARY: No dysuria or hematuria. MUSCULOSKELETAL: Reports normal range of motion., Joint pain. SKIN: No rashes. No jaundice. ENDOCRINE: No chills, fevers. No excessive weight gain or loss. No polydipsia or polyuria. PSYCHIATRIC: Unremarkable. NEUROLOGY: No change in mental status. Denies dizziness, headache. ENT: Vision unremarkable. CONSTITUTIONAL: No recent weight loss. No fever, chills, night sweats. Past Medical History Past Medical History: Hyperlipidemia, Hypertension, Memory Impairment, Thyroid Disorder Additional Past Medical History / Comment(s): SINUS. OSTEOPOROSIS History of Any Multi-Drug Resistant Organisms: None Reported Past Surgical History: Appendectomy, Cholecystectomy, Joint Replacement Additional Past Surgical History / Comment(s): TOTAL HIP AND KNEE, NOT SURE WHAT SIDES Past Anesthesia/Blood Transfusion Reactions: No Reported Reaction Past Psychological History: No Psychological Hx Reported Smoking Status: Unknown if ever smoked Past Alcohol Use History: None Reported Past Drug Use History: None Reported - Past Family History Mother Family Medical History: Cancer Medications and Allergies Home Medications Medication Instructions Recorded Confirmed Type Colchicine [Colcrys] 0.6 mg PO DAILY@0908/02/16 09/04/23 History Levothyroxine Sodium [Synthroid] 25 mcg PO DAILY@0600 08/02/16 09/04/23 History Omeprazole [PriLOSEC] 20 mg PO DAILY@89908/02/16 09/04/23 History Potassium Chloride [Klor-Con M10] 30 meq PO DAILY@0900 08/02/16 09/04/23 History rOPINIRole HCL [Requip] 0.25 mg PO HS@209908/02/16 09/04/23 History Acetaminophen [Tylenol] 650 mg PO Q6H PRN 09/04/23 09/04/23 History Alendronate Sodium [Fosamax] 70 mg PO WEATHERS@89909/04/23 09/04/23 History Atorvastatin Calcium [Lipitor] 40 mg PO HS@209909/04/23 09/04/23 History Diclofenac Sodium [Voltaren] 25 mg PO BID@0900,209909/04/23 09/04/23 History FLUoxetine HCL 40 mg PO DAILY@89909/04/23 09/04/23 History Famotidine [Pepcid] 20 mg PO DAILY@89909/04/23 09/04/23 History Fluticasone Nasal [place] [Flonase 1 spray EA NOSTRIL DAILY@0909/04/23 09/04/23 History Nasal [place]] Losartan [Cozaar] 25 mg PO DAILY@0900 09/04/23 09/04/23 History Montelukast [Singulair] 10 mg PO DAILY@0900 09/04/23 09/04/23 History oxyCODONE HCL [OxyIR] 5 mg PO Q6H PRN 09/04/23 09/04/23 History traZODone HCL [Desyrel] 100 mg PO HS@2100 09/04/23 09/04/23 History Allergies Allergy/AdvReac Type Severity Reaction Status Date / Time Penicillins Allergy Anaphylaxis Verified 09/04/23 16:28 aspirin AdvReac Swelling Verified 09/04/23 16:28 red dye AdvReac Itching Verified 09/04/23 16:28 Sulfa (Sulfonamide AdvReac Nausea & Verified 09/04/23 16:28 Antibiotics) Vomiting Physical Exam Vitals: Vital Signs Temp Pulse Resp BP Pulse Ox 09/08/23 07:00 97.8 F 77 16 122/69 94 L 09/08/23 01:46 98.5 F 62 16 106/63 98 09/07/23 19:02 98.2 F 78 17 120/71 95 09/07/23 14:15 98.6 F 83 16 95/57 96 Intake and Output 09/07/23 09/08/23 09/08/23 22:59 06:59 14:59 Intake Total 118 Output Total 360 Balance -360 118 Intake: Oral 118 Output: Urine 360 Straight 360 Other: Voiding Method Bedside Commode Bedside Commode # Voids 1 1 General appearance: The patient is alert, oriented, appears in no acute distress. HET: Head is normocephalic and atraumatic. Conjunctiva pink. Sclera anicteric. Neck: Supple without lymphadenopathy. Trachea midline. Heart: Regular. Lungs: Equal expansion, normal respiratory effort. Abdomen: Soft, left lower quadrant tenderness, nondistended with bowel sounds. No guarding or rigidity. Skin: No rashes. No jaundice. Extremities: Normal skin color and turgor. No pedal edema. Neurological: No focal deficits. Alert and oriented x3. Results CBC & Chem 7: 09/08/23 09:15 09/06/23 17:09 Labs: Abnormal Lab Results - Last 24 Hours (Table) 09/07/23 Range/Units 17:10 Urine Appearance Cloudy H (Clear) Ur Specific [place] 1.040 H (1.001-1.035) Ur Leukocyte Esterase Large H (Negative) Urine WBC 43 H (0-5) /hpf Urine WBC Clumps Few H (None) /hpf Urine Mucus Rare H (None) /hpf Comments: CT abdomen and pelvis with contrast reports colitis involving the distal third of the transverse colon extending to the rectum. No evidence for acute process involving the liver. Assessment and Plan (1) Elevated liver enzymes Narrative/Plan: 78-year-old female presenting with chest pain 4 days ago who was admitted for cardiology evaluation and deemed a cardiac source for chest pain. Patient then has been complaining of now left lower abdominal pain. She does have a history of abdominal pain in the past and has undergone 2 previous EGDs one in 2015 showing gastritis and one in [address] Salazar again findings of mild gas tritis. On admission patient was noted to have normal LFTs and reviewing previous LFTs no elevation in the past. She denies any previous history of any underlying liver disease. She is status post cholecystectomy many years ago and unsure why. Follow-up CMP showed a significant elevation in AST and OT and alkaline phosphatase within normal bilirubin. Unclear etiology as patient has not had any new medications or antibiotics. Possible CBD stone needs to be considered. She did have a CT of the abdomen and pelvis reports gallbladder surgically absent with mild intrahepatic and extrahepatic biliary dilation likely physiologic and postcholecystectomy change. No evidence of choledocholithiasis. colitis in the distal third of the transverse colon extending to the rectum. The liver is normal. Current Visit: Yes Status: Acute Code(s): R74.8 - ABNORMAL LEVELS OF OTHER SERUM ENZYMES SNOMED Code(s): 278462311 (2) Abdominal pain Current Visit: No Status: Acute Code(s): R10.9 - UNSPECIFIED ABDOMINAL PAIN SNOMED Code(s): 37229841 (3) Colitis Current Visit: Yes Status: Acute Code(s): K52.9 - NONINFECTIVE GASTROENTERITIS AND COLITIS, UNSPECIFIED SNOMED Code(s): 02713401 (4) Thrombocytopenia Current Visit: Yes Status: Acute Code(s): D69.6 - THROMBOCYTOPENIA, UNSPECIFIED SNOMED Code(s): 122937935 (5) Cervical spine fracture Current Visit: Yes Status: Acute Code(s): S12.9XXA - FRACTURE OF NECK, UNSPECIFIED, INITIAL ENCOUNTER SNOMED Code(s): 513291451 Plan: 1. Continue symptomatic and supportive care 2. Will order MRCP to evaluate for CBD obstruction 3. Daily CBC, CMP, INR 4. Diet as tolerated 5. Nothing by mouth after midnight 6. Further recommendations forthcoming based on clinical course Thank you for this consultation, we will continue to follow. Dr. Inga Jones I agree with the dictator's note, documented as a scribe by Ria Kern.
[2023-09-08 16:19] LABS: ALT 197 U/L (4-34); AST 68 U/L (14-36); African American GFR (CKD) 65 (>60 ml/min/1.73 sqM); Albumin 2.5 g/dL (3.5-5.0); Albumin/Globulin Ratio 1.1; Alkaline Phosphatase 211 U/L (38-126); Anion Gap 6 mmol/L; Blood Urea Nitrogen 13 mg/dL (7-17); Calcium 7.5 mg/dL (8.4-10.2); Carbon Dioxide 19 mmol/L (22-30); Chloride 113 mmol/L (98-107); Globulin 2.3 g/dL; Glucose 89 mg/dL (74-99); Non-African American GFR(CKD) 57 (>60 ml/min/1.73 sqM); Potassium 3.8 mmol/L (3.5-5.1); Sodium 138 mmol/L (137-145); Total Bilirubin 0.4 mg/dL (0.2-1.3); Total Protein 4.8 g/dL (6.3-8.2)
[2023-09-08 18:52] LABS: Hepatitis A Antibody IgM Nonreactive; Hepatitis B Core IgM Nonreactive; Hepatitis B Surface Antigen Nonreactive; Hepatitis C IgG Antibody Nonreactive
[2023-09-08 19:02] LABS: ALT 206 U/L (8-44); AST 71 U/L (13-35); Albumin 2.9 g/dL (3.8-4.9); Albumin/Globulin Ratio 1.81 Ratio (1.60-3.17); Alkaline Phosphatase 214 U/L (41-126); Blood Urea Nitrogen 11.7 mg/dL (9.0-27.0); Calcium 7.5 mg/dL (8.7-10.3); Carbon Dioxide 18.4 mmol/L (21.6-31.8); Chloride 111 mmol/L (96-109); Globulin 1.6 g/dL (1.6-3.3); Glucose 125 mg/dL (70-110); Potassium 3.4 mmol/L (3.5-5.5); Sodium 140 mmol/L (135-145); Total Bilirubin 0.4 mg/dL (0.3-1.2); Total Protein 4.5 g/dL (6.2-8.2)
[2023-09-08] MEDS: traZODone HCL 50 MG TAB PO SCH (20:04)
--- NOTE | 2023-09-08 21:10 | PN ---
PROGRESS NOTE DATE OF SERVICE: 09/08/2023 CHIEF COMPLAINT: Abdominal pain in the left upper quadrant with elevated white count and liver function studies. HISTORY OF PRESENT ILLNESS: This lady seems to feel about the same. She is not throwing up. She is still complaining of the pain. CT scan suggests possibility of left-sided colitis with no significant abnormality seen in the liver or the right upper quadrant. PHYSICAL EXAMINATION: GENERAL: Color is normal. CHEST: Clear. CARDIAC: Normal. ABDOMEN: She has a little bit of tenderness in the left upper quadrant. IMPRESSION: 1. Left upper quadrant pain. 2. Elevated liver function studies. 3. Possible left-sided colitis. 4. Leukocytosis. PLAN: GI consult to look both the liver, hepatic ducts, and colon. MMODL / IJN: [id number] /
[2023-09-09] MEDS: SODIUM CHLORIDE 0.9% 1,000 ML IV SCH ×4 (03:57→18:28)
[2023-09-09] MEDS: MORPHINE SULFATE 4 MG/ML SYRINGE IV PRN ×2 (05:24→20:17)
[2023-09-09] MEDS: LEVOTHYROXINE 25 MCG TAB PO SCH (05:24)
[2023-09-09 06:55] LABS: HCT 26.4 % (34.0-46.0); HGB 9.2 gm/dL (11.4-16.0); Hypochromasia Slight; MCH 32.5 pg (25.0-35.0); MCHC 34.8 g/dL (31.0-37.0); MCV 93.2 fL (80.0-100.0); Mean Platelet Volume 9.5; RBC 2.83 m/uL (3.80-5.40); RDW 13.5 % (11.5-15.5); WBC 7.6 k/uL (3.8-10.6)
[2023-09-09 06:58] LABS: Platelet Count 90 k/uL (150-450)
[2023-09-09 07:06] LABS: Prothrombin Time 11.3 sec (10.0-12.5)
[2023-09-09 07:30] LABS: ALT 152 U/L (4-34); AST 46 U/L (14-36); African American GFR (CKD) 69 (>60 ml/min/1.73 sqM); Albumin 2.2 g/dL (3.5-5.0); Alkaline Phosphatase 164 U/L (38-126); Anion Gap 6 mmol/L; Blood Urea Nitrogen 12 mg/dL (7-17); Calcium 7.4 mg/dL (8.4-10.2); Carbon Dioxide 19 mmol/L (22-30); Chloride 115 mmol/L (98-107); Globulin 2.1 g/dL; Glucose 87 mg/dL (74-99); Non-African American GFR(CKD) 60 (>60 ml/min/1.73 sqM); Potassium 3.7 mmol/L (3.5-5.1); Sodium 140 mmol/L (137-145); Total Bilirubin 0.4 mg/dL (0.2-1.3); Total Protein 4.3 g/dL (6.3-8.2)
[2023-09-09] MEDS: DOCUSATE 100 MG CAP PO SCH ×2 (08:35→20:18)
[2023-09-09] MEDS: MONTELUKAST 10 MG TAB PO SCH (08:35)
[2023-09-09] MEDS: PANTOPRAZOLE 40 MG TABLET PO SCH (08:35)
[2023-09-09] MEDS: traMADol 50 MG TAB PO SCH ×3 (08:35→20:17)
[2023-09-09] MEDS: FAMOTIDINE 20 MG TAB PO SCH (08:35)
[2023-09-09] MEDS: FLUTICASONE 50MCG/SPRAY NASAL 16GM EA NOSTRIL SCH (08:36)
[2023-09-09] MEDS: FLUoxetine HCL 20 MG CAP PO SCH (08:36)
[2023-09-09] MEDS: POTASSIUM CHLORIDE ER 10 MEQ TAB.ER.PRT PO SCH (08:36)
--- NOTE | 2023-09-09 12:02 | P.PN ---
Subjective Progress Note Date: 09/09/23 Principal diagnosis: Abdominal pain This is a 78-year-old pleasant female who presented to the emergency department for left-sided chest pain 4 days ago. She has a past medical history including recent C-spine fracture of C2, hyperlipidemia, hypertension, memory impairment and thyroid disorder. Patient resides in a [facility] states that she started having chest pain and she was brought into the emergency department. She was seen by cardiology, who has deemed that she has a noncardiac chest pain, with troponins negative 3. Patient states she still has a little bit of chest pain but it is improved. She is now also complaining of left lower abdominal pain that is intermittent. Sharp in nature at times. Patient states bowel movements have been normal, when asked if she had diarrhea she states that she has not. However she did have a C. diff study done that was negative. Patient is in a [place] collar. She had a CT of the abdomen and pelvis that reported colitis in the distal third of the transverse colon extending to the rectum. Liver was reported as normal. Patient was admitted with normal LFTs with follow-up lab work showing increase in AST and ALTs in alkaline phosphatase. Gastroenterology was consulted for elevated liver enzymes and abdominal pain. Patient denies any previous knowledge of liver disease. No knowledge of elevated liver enzymes in the past. She does not recall any new medications. She does take atorvastatin at home and has been on that for some time. States that her last bowel movement was yesterday and this morning it was soft and formed. No blood. She does state she has some nausea but no vomiting. She is unsure of last colonoscopy Last available labs were from 09/06/2023. Today's CMP currently pending. On ad mission total bilirubin 0.5 AST 36 ALTs 27 alkaline phosphatase 101. Comprehensive metabolic panel from 09/06/2023 total bilirubin 0.8 AST 272 ALTs 405 alkaline phosphatase 272 09/09/2023 Patient seen and examined today as a follow-up. She is up using the bathroom. She denies any abdominal pain states pain is now in her left hip. She denies any nausea or vomiting. Liver enzymes are trending down. Patient scheduled to undergo MRCP at 3 PM today. Today's labs WBC 7.6 hemoglobin 9.2 platelet count 90,000 total bilirubin 0.4 AST 46 AL T1 52 alkaline phosphatase 164 hepatitis panel nonreactive Objective - Vital Signs Vital signs: Vital Signs Temp 97.7 F 09/09/23 07:00 Pulse 60 09/09/23 07:00 Resp 16 09/09/23 07:00 BP 133/76 09/09/23 07:00 Pulse Ox 99 09/09/23 07:00 FiO2 Intake & Output 09/08/23 09/09/23 09/09/23 18:59 06:59 18:59 Intake Total 1118 Balance 1118 Intake: Intake, IV Titration 1000 Amount Sodium Chloride 0.9% 1, 1000 000 ml @ 125 mls/hr IV . Q8H [facility] Rx#:[id number] Oral 118 Other: Voiding Method Bedside Commode # Voids 2 # Bowel Movements 1 - Exam General appearance: The patient is alert, oriented, appears in no acute distress. HET: Head is normocephalic and atraumatic. Conjunctiva pink. Sclera anicteric. Neck: Supple without lymphadenopathy. Abdomen: Soft, nontender, nondistended with bowel sounds. No guarding or rigidity. Extremities: Normal skin color and turgor. No pedal edema. Tenderness to palpation along the left hip Skin: No rashes, no jaundice Neurological: No focal deficits. Alert and oriented. - Labs CBC & Chem 7: 09/09/23 06:41 09/09/23 06:41 Labs: Abnormal Lab Results - Last 24 Hours (Table) 09/08/23 09/08/23 09/08/23 Range/Units 09:15 09:15 15:18 RBC 3.18 L (3.80-5.40) m/uL Hgb 10.0 L (11.4-16.0) gm/dL Hct 30.0 L (34.0-46.0) % Plt Count 97 L (150-450) k/uL Potassium 3.4 L (3.5-5.5) mmol/L Chloride 111 H 113 H (96-109) mmol/L Carbon Dioxide 18.4 L 19 L (21.6-31.8) mmol/L Est GFR (CKD-EPI) 57 L (>=60) BUN/Creatinine Ratio 11.70 L (12.00-20.00) Ratio Glucose 125 H (70-110) mg/dL Calcium 7.5 L 7.5 L (8.7-10.3) mg/dL AST 71 H 68 H (13-35) U/L ALT 206 H 197 H (8-44) U/L Alkaline Phosphatase 214 H 211 H (41-126) U/L Total Protein 4.5 L 4.8 L (6.2-8.2) g/dL Albumin 2.9 L 2.5 L (3.8-4.9) g/dL 09/09/23 09/09/23 Range/Units 06:41 06:41 RBC 2.83 L (3.80-5.40) m/uL Hgb 9.2 L (11.4-16.0) gm/dL Hct 26.4 L (34.0-46.0) % Plt Count 90 L (150-450) k/uL Potassium (3.5-5.5) mmol/L Chloride 115 H (96-109) mmol/L Carbon Dioxide 19 L (21.6-31.8) mmol/L Est GFR (CKD-EPI) (>=60) BUN/Creatinine Ratio (12.00-20.00) Ratio Glucose (70-110) mg/dL Calcium 7.4 L (8.7-10.3) mg/dL AST 46 H (13-35) U/L ALT 152 H (8-44) U/L Alkaline Phosphatase 164 H (41-126) U/L Total Protein 4.3 L (6.2-8.2) g/dL Albumin 2.2 L (3.8-4.9) g/dL Assessment and Plan (1) Elevated liver enzymes Narrative/Plan: 78-year-old female presenting with chest pain 4 days ago who was admitted for cardiology evaluation and deemed a cardiac source for chest pain. Patient then has been complaining of now left lower abdominal pain. She does have a history of abdominal pain in the past and has undergone 2 previous EGDs one in 2015 showing gastritis and one [place] [address] Salazar again findings of mild gastritis. On admission patient was noted to have normal LFTs and reviewing previous LFTs no elevation in the past. She denies any previous history of any underlying liver disease. She is status post cholecystectomy many years ago and unsure why. Follow-up CMP showed a significant elevation in AST and OT and alkaline phosphatase within normal bilirubin. Unclear etiology as patient has not had any new medications or antibiotics. Possible CBD stone needs to be considered. She did have a CT of the abdomen and pelvis reports gallbladder surgically absent with mild intrahepatic and extrahepatic biliary dilation likely physiologic and postcholecystectomy change. No evidence of choledoc holithiasis. colitis in the distal third of the transverse colon extending to the rectum. The liver is normal. Liver enzymes are trending down. Unclear etiology of acute elevation of liver enzymes. Patient scheduled for MRCP this afternoon to rule out possible choledochal lithiasis. Current Visit: Yes Status: Acute Code(s): R74.8 - ABNORMAL LEVELS OF OTHER SERUM ENZYMES SNOMED Code(s): 894951332 (2) Abdominal pain Current Visit: No Status: Acute Code(s): R10.9 - UNSPECIFIED ABDOMINAL PAIN SNOMED Code(s): 89193580 (3) Colitis Current Visit: Yes Status: Acute Code(s): K52.9 - NONINFECTIVE GASTROENTERITIS AND COLITIS, UNSPECIFIED SNOMED Code(s): 70364480 (4) Thrombocytopenia Current Visit: Yes Status: Acute Code(s): D69.6 - THROMBOCYTOPENIA, UNSPECIFIED SNOMED Code(s): 536982487 (5) Cervical spine fracture Current Visit: Yes Status: Acute Code(s): S12.9XXA - FRACTURE OF NECK, UNSPECIFIED, INITIAL ENCOUNTER SNOMED Code(s): 833038725 Plan: 1. Continue symptomatic and supportive care 2. MRCP ordered, patient scheduled this afternoon at 1500 3. Daily CBC, CMP 4. Diet as tolerated 5. Keep nothing by mouth for MRCP then patient may have diet as tolerated 6. Further recommendations forthcoming based on clinical course Thank you for this consultation, we will continue to follow. Dr. Inga Jones I agree with the dictator's note, documented as a scribe by Ria Kern.
[2023-09-09] MEDS: traZODone HCL 50 MG TAB PO SCH (20:18)
--- NOTE | 2023-09-09 20:25 | MR ---
EXAMINATION TYPE: MR MRCP DATE OF EXAM: 09/09/2023 4:24 PM CLINICAL INDICATION:Female, 78 years old with history of elevated lfts, abdominal pain; , Elevated lf ts, abdominal pain. COMPARISON: CT abdomen/pelvis 09/07/2023 and 11/25/2019 TECHNIQUE: Multi planar, T2-weighted imaging with and without fat saturation and chemical shift imag ing was performed of the abdomen. Then, heavily T2 weighted imaging (half-Fourier acquisition single- shot turbo spin-echo) was utilized in order to study the biliary system. Maximum intensity projectio n images were reconstructed from the original data of the biliary tree. 3D images were created on a [employer] work station. No Gadolinium given. FINDINGS: Lower Thorax: Trace bilateral pleural effusions. MRCP: * The intrahepatic ducts have mild dilation. * The common bile duct at the level of the pancreatic head measures 10 mm in size. * The common hepatic duct measures 12 mm in size. * The pancreatic duct is normal measuring of the 3 mm at the pancreatic head. * The gallbladder appears surgically absent. Abdomen: Liver: Unremarkable. Pancreas: High T2 signal lesion next to the main pancreatic duct measuring 5 x 3 mm. Spleen: Unremarkable. Adrenal glands: Unremarkable. Kidneys: High T2 signal renal cyst measuring up to 4.2 cm on the right. Stomach and Bowel: There is a second portion duodenal diverticulum. Wall thickening of the colon with fat stranding changes seen on prior CT on 09/07/2023 appears is not significantly changed given diff erences in technique. Peritoneum: No evidence of pneumoperitoneum. Trace free fluid throughout the pelvis. Vasculature: Unremarkable. No aortic aneurysm. Musculoskeletal: The osseous structures appear intact. Lymph Nodes: No gross evidence for lymphadenopathy. Abdominal wall: There is anasarca with high T2 cyst streaky edema seen throughout the soft tissues. IMPRESSION: 1. No definitive acute process involving the liver. 2. Stable back to at least 2019, Mild dilation of the extrahepatic and central intrahepatic biliary system which can be seen in the normal post cholecystectomy physiology. No evidence for choledocholit hiasis or biliary stricture. 3. Pancreatic head cystic structure which could represent intraductal papillary mucinous neoplasm. C onsider follow-up imaging in one year to ensure stability. 4. Similar finding suggestive of colitis as seen on 09/07/2023 CT. 5. Simple appearing right hepatic cyst. 6. Second portion duodenal diverticulum. 7. Diffuse anasarca of the soft tissues correlate for volume overload.
[2023-09-10] MEDS: SODIUM CHLORIDE 0.9% 1,000 ML IV SCH ×3 (03:37→20:10)
[2023-09-10] MEDS: LEVOTHYROXINE 25 MCG TAB PO SCH (05:35)
[2023-09-10 07:42] LABS: HCT 32.6 % (34.0-46.0); HGB 10.7 gm/dL (11.4-16.0); Hypochromasia Slight; MCH 30.9 pg (25.0-35.0); MCHC 32.9 g/dL (31.0-37.0); MCV 93.7 fL (80.0-100.0); Mean Platelet Volume 8.3; Platelet Count 125 k/uL (150-450); RBC 3.48 m/uL (3.80-5.40); RDW 13.1 % (11.5-15.5); WBC 6.5 k/uL (3.8-10.6)
[2023-09-10 07:43] LABS: ALT 136 U/L (4-34); AST 44 U/L (14-36); African American GFR (CKD) 69 (>60 ml/min/1.73 sqM); Albumin 2.9 g/dL (3.5-5.0); Albumin/Globulin Ratio 1.2; Alkaline Phosphatase 189 U/L (38-126); Anion Gap 8 mmol/L; Blood Urea Nitrogen 9 mg/dL (7-17); Calcium 8.3 mg/dL (8.4-10.2); Carbon Dioxide 19 mmol/L (22-30); Chloride 112 mmol/L (98-107); Globulin 2.4 g/dL; Glucose 84 mg/dL (74-99); Non-African American GFR(CKD) 60 (>60 ml/min/1.73 sqM); Potassium 3.4 mmol/L (3.5-5.1); Sodium 139 mmol/L (137-145); Total Bilirubin 0.6 mg/dL (0.2-1.3); Total Protein 5.3 g/dL (6.3-8.2)
[2023-09-10] MEDS: FAMOTIDINE 20 MG TAB PO SCH (09:59)
[2023-09-10] MEDS: DOCUSATE 100 MG CAP PO SCH ×2 (09:59→20:10)
[2023-09-10] MEDS: MONTELUKAST 10 MG TAB PO SCH (10:00)
[2023-09-10] MEDS: FLUoxetine HCL 20 MG CAP PO SCH (10:00)
[2023-09-10] MEDS: PANTOPRAZOLE 40 MG TABLET PO SCH (10:00)
[2023-09-10] MEDS: traMADol 50 MG TAB PO SCH ×3 (10:01→21:19)
[2023-09-10] MEDS: POTASSIUM CHLORIDE ER 10 MEQ TAB.ER.PRT PO SCH (10:01)
[2023-09-10] MEDS: FLUTICASONE 50MCG/SPRAY NASAL 16GM EA NOSTRIL SCH (10:05)
--- NOTE | 2023-09-10 10:58 | P.PN ---
Subjective Progress Note Date: 09/10/23 Principal diagnosis: Abdominal pain This is a 78-year-old pleasant female who presented to the emergency department for left-sided chest pain 4 days ago. She has a past medical history including recent C-spine fracture of C2, hyperlipidemia, hypertension, memory impairment and thyroid disorder. [facility] states that she started having chest pain and she was brought into the emergency department. She was seen by cardiology, who has deemed that she has a noncardiac chest pain, with troponins negative 3. Patient states she still has a little bit of chest pain but it is improved. She is now also complaining of left lower abdominal pain that is intermittent. Sharp in nature at times. Patient states bowel movements have been normal, when asked if she had diarrhea she states that she has not. However she did have a C. diff study done that was negative. Patient is in a [place] collar. She had a CT of the abdomen and pelvis that reported colitis in the distal third of the transverse colon extending to the rectum. Liver was reported as normal. Patient was admitted with normal LFTs with follow-up lab work showing increase in AST and ALTs in alkaline phosphatase. Gastroenterology was consulted for elevated liver enzymes and abdominal pain. Patient denies any previous knowledge of liver disease. No knowledge of elevated liver enzymes in the past. She does not recall any new medications. She does take atorvastatin at home and has been on that for some time. States that her last bowel movement was yesterday and this morning it was soft and formed. No blood. She does state she has some nausea but no vomiting. She is unsure of last colonoscopy Last available labs were from 09/06/2023. Today's CMP currently pending. [place] total bilirubin 0.5 AST 36 ALTs 27 alkaline phosphatase 101. Comprehensive metabolic panel from 09/06/2023 total bilirubin 0.8 AST 272 ALTs 405 alkaline phosphatase 272 09/09/2023 Patient seen and examined today as a follow-up. She is up using the bathroom. She denies any abdominal pain states pain is now in her left hip. She denies any nausea or vomiting. Liver enzymes are trending down. Patient scheduled to undergo MRCP at 3 PM today. Today's labs WBC 7.6 hemoglobin 9.2 platelet count 90,000 total bilirubin 0.4 AST 46 AL T1 52 alkaline phosphatase 164 hepatitis panel nonreactive 2022 Patient seen and examined today as a follow-up. She underwent MRCP yesterday that shows no evidence of choledocholithiasis or biliary stricture. It was noted of pancreatic cyst 3 mm in size recommendation of follow-up imaging in one year. Significant abdominal pain, nausea or vomiting. Most of that pain that she's having is in the left hip region. LFTs continue to trend down. Objective - Vital Signs Vital signs: Vital Signs Temp 98.1 F 09/10/23 07:20 Pulse 74 09/10/23 07:20 Resp 18 09/10/23 07:20 BP 147/71 09/10/23 07:20 Pulse Ox 97 09/10/23 07:20 FiO2 Intake & Output 09/09/23 09/10/23 09/10/23 18:59 06:59 18:59 Intake Total 180 50 Balance 180 50 Intake: Oral 180 50 Other: Voiding Method Bedside Commode # Voids 2 1 # Bowel Movements 2 - Exam General appearance: The patient is alert, oriented, appears in no acute distress. HET: Head is normocephalic and atraumatic. Conjunctiva pink. Sclera anicteric. Neck: Supple without lymphadenopathy. Abdomen: Soft, nontender, nondistended with bowel sounds. No guarding or rigidity. Extremities: Normal skin color and turgor. No pedal edema. Tenderness to palpation along the left hip Skin: No rashes, no jaundice Neurological: No focal deficits. Alert and oriented. - Labs CBC & Chem 7: 09/10/23 07:22 09/10/23 07:22 Labs: Abnormal Lab Results - Last 24 Hours (Table) 09/10/23 09/10/23 Range/Units 07:22 07:22 RBC 3.48 L (3.80-5.40) m/uL Hgb 10.7 L (11.4-16.0) gm/dL Hct 32.6 L (34.0-46.0) % Plt Count 125 L (150-450) k/uL Potassium 3.4 L (3.5-5.1) mmol/L Chloride 112 H (98-107) mmol/L Carbon Dioxide 19 L (22-30) mmol/L Calcium 8.3 L (8.4-10.2) mg/dL AST 44 H (14-36) U/L ALT 136 H (4-34) U/L Alkaline Phosphatase 189 H (38-126) U/L Total Protein 5.3 L (6.3-8.2) g/dL Albumin 2.9 L (3.5-5.0) g/dL Microbiology - Last 24 Hours (Table) 09/07/23 17:10 Urine Culture - Final Urine,Voided Assessment and Plan (1) Elevated liver enzymes Narrative/Plan: 78-year-old female presenting with chest pain 4 days ago who was admitted for cardiology evaluation and deemed a cardiac source for chest pain. Patient then has been complaining of now left lower abdominal pain. She does have a history of abdominal pain in the past and has undergone 2 previous EGDs one in 2015 showing gastritis and one in [address] aSlazar again findings of mild gastritis. On admission patient was noted to have normal LFTs and reviewing previous LFTs no elevation in the past. She denies any previous history of any underlying liver disease. She is status post cholecystectomy many years ago and unsure why. Follow-up CMP showed a significant elevation in AST and OT and alkaline phosphatase within normal bilirubin. Unclear etiology as patient has not had any new medications or antibiotics. Possible CBD stone needs to be considered. She did have a CT of the abdomen and pelvis reports gallbladder surgically absent with mild intrahepatic and extrahepatic biliary dilation likely physiologic and postcholecystectomy change. No evidence of choledocholithiasis. colitis in the distal third of the transverse colon extending to the rectum. The liver is normal. Liver enzymes are trending down. Unclear etiology of acute elevation of liver enzymes. Patient scheduled for MRCP this afternoon to rule out possible choledochal lithiasis. MRCP completed with no evidence of choledocholithiasis or biliary stricture. LFTs continue to trend down. Unclear etiology of elevation of liver enzymes could be medication induced or possible hypoperfusion. Further workup indicated. Patient can follow-up as an outpatient. Current Visit: Yes Status: Acute Code(s): R74.8 - ABNORMAL LEVELS OF OTHER SERUM ENZYMES SNOMED Code(s): 044822557 (2) Abdominal pain Current Visit: No Status: Acute Code(s): R10.9 - UNSPECIFIED ABDOMINAL PAIN SNOMED Code(s): 95698974 (3) Colitis Narrative/Plan: Patient states she is having regular bowel movements, they are nonbloody. Current Visit: Yes Status: Acute Code(s): K52.9 - NONINFECTIVE GASTROENTERITIS AND COLITIS, UNSPECIFIED SNOMED Code(s): 71145374 (4) Thrombocytopenia Narrative/Plan: Patient has had chronic thrombocytopenia when reviewing chart. Current Visit: Yes Status: Acute Code(s): D69.6 - THROMBOCYTOPENIA, UNSPECIFIED SNOMED Code(s): 012490252 (5) Cervical spine fracture Current Visit: Yes Status: Acute Code(s): S12.9XXA - FRACTURE OF NECK, UNSPECIFIED, INITIAL ENCOUNTER SNOMED Code(s): 926192384 Plan: 1. Continue symptomatic and supportive care 2. MRCP ordered and reviewed without any evidence of choledocholithiasis or biliary stricture 3. No further gastroenterology workup indicated 4. Diet as tolerated 5. Patient is cleared from gastroenterology for discharge. Outpatient follow- up in 1-2 weeks. Can monitor pancreatic cyst in the outpatient setting. Thank you for this consultation. Dr. Inga Jones I agree with the dictator's note, documented as a scribe by Ria Kern.
[2023-09-10] MEDS: traZODone HCL 50 MG TAB PO SCH (20:10)
--- NOTE | 2023-09-10 22:34 | PN ---
PROGRESS NOTE DATE OF SERVICE: 09/09/2023 CHIEF COMPLAINT: Left-sided abdominal pain with elevated liver function studies and possibility of colitis. HISTORY OF PRESENT ILLNESS: This lady is feeling a bit better. She feels that her pain has subsided somewhat. She has had no further nausea or vomiting. Liver enzymes are improving. PHYSICAL EXAMINATION: CHEST: Clear. CARDIAC: Normal. ABDOMEN: Soft, nontender. IMPRESSION: 1. Left-sided abdominal pain. 2. Elevated liver function studies. 3. Possible colitis. PLAN: Continue to follow and monitor symptoms as well as laboratory studies. She is being assessed by Gastroenterology as well. MMODL / IJN: [id number] /
--- NOTE | 2023-09-11 00:25 | PN ---
PROGRESS NOTE CHIEF COMPLAINT: Abdominal pain. HISTORY OF PRESENT ILLNESS: This lady is doing fairly well. CT suggests there maybe something in the head of the pancreas. It is noted that her hemoglobin is dropping. PHYSICAL EXAMINATION: Color is good. Abdomen is soft, nontender. IMPRESSION: 1. Left-sided abdominal pain. 2. Elevated liver function studies. PLAN: Order lipase, CA19-9. Continue to follow with Gastroenterology. MMODL / IJN: [id number] /
[2023-09-11] MEDS: SODIUM CHLORIDE 0.9% 1,000 ML IV SCH ×3 (04:04→20:38)
[2023-09-11] MEDS: LEVOTHYROXINE 25 MCG TAB PO SCH (06:12)
[2023-09-11] MEDS: ACETAMINOPHEN TAB 325 MG TAB PO PRN (06:15)
[2023-09-11] MEDS: traMADol 50 MG TAB PO SCH ×3 (09:37→20:36)
[2023-09-11] MEDS: DOCUSATE 100 MG CAP PO SCH ×2 (09:37→20:36)
[2023-09-11] MEDS: FLUoxetine HCL 20 MG CAP PO SCH (09:37)
[2023-09-11] MEDS: POTASSIUM CHLORIDE ER 10 MEQ TAB.ER.PRT PO SCH (09:37)
[2023-09-11] MEDS: MONTELUKAST 10 MG TAB PO SCH (09:37)
[2023-09-11] MEDS: FAMOTIDINE 20 MG TAB PO SCH (09:37)
[2023-09-11] MEDS: PANTOPRAZOLE 40 MG TABLET PO SCH (09:37)
[2023-09-11] MEDS: FLUTICASONE 50MCG/SPRAY NASAL 16GM EA NOSTRIL SCH (09:40)
[2023-09-11] MEDS: LEVOFLOXACIN 250MG-D5W PMX 250 MG in DEXTROSE/WATER 1 50ML.BAG IVPB SCH (16:21)
[2023-09-11] MEDS: traZODone HCL 50 MG TAB PO SCH (20:36)
--- NOTE | 2023-09-12 00:04 | PN ---
PROGRESS NOTE CHIEF COMPLAINT: Left upper quadrant pain and elevated liver function studies. HISTORY OF PRESENT ILLNESS: This lady's numbers continued to improve. Her pain is less. PHYSICAL EXAMINATION: GENERAL: She remains slightly pale. CHEST: Clear. CARDIAC: Normal. ABDOMEN: Soft and nontender. IMPRESSION: 1. Left upper quadrant pain with elevated liver function studies - resolving. 2. Possible lesion in the pancreas. PLAN: Progress activity and possibly look further in to reasons that her liver enzymes had gone up in the first place as well as a possible abnormality of the pancreas. MMODL / IJN: [id number] /
[2023-09-12] MEDS: LEVOTHYROXINE 25 MCG TAB PO SCH (05:27)
[2023-09-12] MEDS: FLUoxetine HCL 20 MG CAP PO SCH (08:22)
[2023-09-12] MEDS: traMADol 50 MG TAB PO SCH ×2 (08:22→17:27)
[2023-09-12] MEDS: POTASSIUM CHLORIDE ER 10 MEQ TAB.ER.PRT PO SCH (08:22)
[2023-09-12] MEDS: MONTELUKAST 10 MG TAB PO SCH (08:22)
[2023-09-12] MEDS: PANTOPRAZOLE 40 MG TABLET PO SCH (08:22)
[2023-09-12] MEDS: DOCUSATE 100 MG CAP PO SCH (08:23)
[2023-09-12] MEDS: FAMOTIDINE 20 MG TAB PO SCH (08:23)
[2023-09-12] MEDS: FLUTICASONE 50MCG/SPRAY NASAL 16GM EA NOSTRIL SCH (08:24)
--- NOTE | 2023-09-12 15:04 | DS ---
DISCHARGE SUMMARY CHIEF COMPLAINT: Chest and abdominal pain. HISTORY OF PRESENT ILLNESS AND PHYSICAL EXAMINATION: Details of this lady's history and physical can be found in the initial workup. LABORATORY STUDIES: While she was in the hospital she had laboratory studies, details of which can be found in the laboratory section of her chart. COURSE IN THE HOSPITAL: After admission, she was placed on bedrest, started intravenous fluids. It turned out her pain was more in the left upper quadrant and this was further evaluated. While she is in the hospital, her liver functions krystle significantly including AST, ALT, and alkaline phosphatase. White count also krystle. She was then seen by Gastroenterology. The etiology for the elevation of liver enzymes was never determined. CT scan was unremarkable. The numbers began to improve and fall toward normal. She was stable and doing well. It was felt she could be discharged, follow up, and she will go back to the retirement. FINAL DIAGNOSES: 1. Chest pain. 2. Left upper quadrant pain. 3. Elevation of liver function studies. 4. Leukocytosis. 5. Nausea and vomiting. 6. C2 fracture. 7. Colitis. 8. Mental debility. OPERATIONS: None. CONSULTATIONS: Cardiology and Gastroenterology. MMODL / IJN: [id number] /
[2023-09-12 15:20] VITALS: BP 140/59; PULSE 72; RESP 16; TEMP 98.4
[2023-09-12] MEDS: SODIUM CHLORIDE 0.9% 1,000 ML IV SCH ×2 (17:26→17:28)
[2023-09-12] MEDS: LEVOFLOXACIN 250MG-D5W PMX 250 MG in DEXTROSE/WATER 1 50ML.BAG IVPB SCH (17:26)
--- NOTE | 2023-09-13 14:31 | PN ---
PROGRESS NOTE CHIEF COMPLAINT: Chest pain. HISTORY OF PRESENT ILLNESS: This lady is doing fairly well. She is complaining of some pain in the left eye, but it is normal to confrontation. She always has something to complain about. Her abdominal pain has now gone and her liver enzymes are improving. She can probably go to a retirement today. PHYSICAL EXAMINATION: GENERAL: Color is good. CHEST: Clear. CARDIAC: Normal. ABDOMEN: Soft, nontender. HEENT: The eye appears to be normal. IMPRESSION: 1. Left eye pain. 2. Chest pain. 3. Leukocytosis and elevated liver function studies, etiology unknown. PLAN: Possibly back to the retirement today. MMODL / IJN: [id number] /
== END 2023-09-12 17:21 | DRG 313 ==
LOC: EC 15:17 → 6NMEDSUR 19:41 → OBSVTOIN 09-08 09:43
PROVIDERS: ADMIT Family Medicine; ATTEND Family Medicine
DX: R07.89 Other chest pain (principal); K86.2 Cyst of pancreas; D69.6 Thrombocytopenia, unspecified; E03.9 Hypothyroidism, unspecified; E78.5 Hyperlipidemia, unspecified; I10 Essential (primary) hypertension; R94.5 Abnormal results of liver function studies; K52.9 Noninfective gastroenteritis and colitis, unspecified; M81.0 Age-related osteoporosis without current pathological fracture; R41.3 Other amnesia; S12.100D Unspecified displaced fracture of second cervical vertebra, subsequent encounter for fracture with routine healing; W19.XXXD Unspecified fall, subsequent encounter; Z79.83 Long term (current) use of bisphosphonates; Z79.890 Hormone replacement therapy; Z79.899 Other long term (current) drug therapy; Z96.659 Presence of unspecified artificial knee joint; Z96.649 Presence of unspecified artificial hip joint; Z28.21 Immunization not carried out because of patient refusal; Z88.6 Allergy status to analgesic agent; Z88.0 Allergy status to penicillin; Z88.2 Allergy status to sulfonamides
CPT/HCPCS: 36415; 71045; 71046; 74177; 74181; 80053; 80074; 81001; 83690; 83735; 83880; 84484; 85025; 85027; 85610; 85730; 86301; 87086; 87324; 93005; 93306; 96374; 96376; 99285

== ENCOUNTER → 2023-10-30 | Outpatient (CLI) | payer MEDICARE, OTHER ==
--- NOTE | 2023-10-31 09:22 | CT ---
EXAMINATION TYPE: CT cervical spine wo con DATE OF EXAM: 10/30/2023 COMPARISON: Outside CT August 02, 2023 HISTORY: f/u C2 fx CT DLP: 278.10 mGycm. Automated Exposure Control for Dose Reduction was Utilized. TECHNIQUE: CT scan of the cervical spine is obtained without contrast, axial images are obtained, sa gittal and coronal reformatted images are also reviewed. FINDINGS: Cervical spine is visualized in its entirety from C1 through upper thoracic levels, there i s interval healing of vertical oriented fracture through the anterior inferior aspect of the C2. Alig nment is stable. Persistent grade 1 anterolisthesis C7 on T1. Vertebral body heights are maintained. Persistent stable 9 mm sclerotic lesion at the left base of the dens coronal image 33. Persistent asy mmetric left-sided advanced degenerative change C1-C2 level on coronal images. Persistent moderate mu ltilevel spurring and disc space narrowing C3-C4 through C6-C7 levels. Posterior disc herniations eff lizzeth the anterior thecal sac at these levels on sagittal and axial images. Review of axial images demonstrates multilevel uncovertebral facet degenerative changes causing multi level bilateral neural foraminal narrowing. There is [id number] calcified plaque left greater t palmer right carotid bulb level redemonstrated. There is persistent heterogeneous thyroid goiter with la rger asymmetric left-sided enlargement noted. Findings grossly correlate with 2018 ultrasound. Consid er repeat ultrasound if felt clinically warranted. Lung apices are clear without pneumothorax. IMPRESSION: Interval healing of nondisplaced vertical oriented fracture through the anterior-inferior C2 vertebra. Alignment is stable. Multilevel degenerative changes redemonstrated and stable. Thyroi d goiter redemonstrated.
== END | disposition home or self-care (01) ==
LOC: RADCTMAIN 08:17
PROVIDERS: ATTEND Physician Assistant
DX: S12.191A Other nondisplaced fracture of second cervical vertebra, initial encounter for closed fracture (principal); M47.812 Spondylosis without myelopathy or radiculopathy, cervical region; E04.9 Nontoxic goiter, unspecified; X58.XXXA Exposure to other specified factors, initial encounter
CPT/HCPCS: 72125